=== PATIENT | male | born 1960 | race Caucasian/White ===

== ENCOUNTER 2018-12-06 11:49 | Emergency (ER) | payer MEDICAID ==
[~2018-12-06] VITALS: Ht 172.7 cm; Wt 94.0 kg
[~2018-12-06 11:49] MED LIST: AMLO10TA PO; ASPI-611 PO; ATOR80TA PO; CLON0.1T PO; HCTZ25T PO; HYDR-4069 PO; LOSA100T57 PO; METO100T14 PO; MINO10TA16 PO; OMEP-84 PO
--- NOTE | 2018-12-06 12:07 | NUR ---
PT JUST AFTER EKG GOT DIAPHORETIC, PALE, AND NAUSEATED. STATES THIS IS NOT HIS NORM BUT THIS HAS BEEN HAPPENING SINCE THIS AM. 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 Addendum: 12/06/18 at 1209 by RWILCOX PT GIVEN COOL CLOTHE AND REPOSITIONED. PT ALERT AND ORIENTED.
[2018-12-06] MEDS ORDERED: normal saline 1000ML IV soln IVB ONE (12:25)
[2018-12-06] MEDS ORDERED: ondansetron/PF 4mg/2ml inj IV ONE (12:25)
[2018-12-06] MEDS ORDERED: LORA10TA65 PO (12:38)
[2018-12-06] MEDS ORDERED: LOSA50TA3 PO (12:38)
[2018-12-06 12:56] LABS: BASOPHILS # (AUTO) 0.1 X10'3 (0-0.2); BASOPHILS % (AUTO) 0.8 % (0-1); EOSINOPHILS # (AUTO) 0.1 X10'3 (0-0.9); EOSINOPHILS % (AUTO) 0.3 % (0-6); HEMATOCRIT 40.5 % (42.0-52.0); HEMOGLOBIN 12.9 g/dl (14.0-17.9); LYMPHOCYTES # (AUTO) 1.8 X10'3 (1.1-4.8); LYMPHOCYTES % (AUTO) 11.2 % (21-51); MEAN CORPUSCULAR HEMOGLOBIN 23.8 PG (27.0-31.0); MEAN CORPUSCULAR HGB CONC 31.9 g/dL (33.0-36.5); MEAN CORPUSCULAR VOLUME 74.4 FL (78-98); MEAN PLATELET VOLUME 8.7 FL (7.4-10.4); MONOCYTES # (AUTO) 1.5 X10'3 (0-0.9); MONOCYTES % (AUTO) 9.3 % (2-12); NEUTROPHILS # (AUTO) 12.7 X10'3 (1.8-7.7); NEUTROPHILS % (AUTO) 78.4 % (42-75); PLATELET COUNT 262 X10'3 (140-440); RED BLOOD COUNT 5.44 X10'6 (4.70-6.10); RED CELL DISTRIBUTION WIDTH 16.8 % (11.5-14.5); WHITE BLOOD COUNT 16.2 X10'3 (4.5-11.0)
[2018-12-06 13:19] LABS: ALANINE AMINOTRANSFERASE 16 U/L (12-78); ALBUMIN 2.6 G/DL (3.4-5.0); ALBUMIN/GLOBULIN RATIO 0.7 (1.1-1.5); ALKALINE PHOSPHATASE 84 IU/L (46-116); ANION GAP 11 (8-16); ASPARTATE AMINO TRANSFERASE 18 U/L (10-37); BILIRUBIN,TOTAL 0.6 MG/DL (0.1-1.0); BLOOD UREA NITROGEN 29 MG/DL (7-18); CALCIUM 8.1 MG/DL (8.5-10.1); CHLORIDE 100 MMOL/L (99-107); CHOL/HDL RATIO 4.7 (0.00-4.99); CHOLESTEROL 99 MG/DL (0-200); CREATININE 1.38 MG/DL (0.60-1.10); GLUCOSE 135 MG/DL (70-104); HDL CHOLESTEROL 21 MG/DL (35-60); LDL CHOLESTEROL 52 MG/DL (50-100); SODIUM 137 MMOL/L (135-145); TOTAL CARBON DIOXIDE 25.9 MMOL/L (24-32); TOTAL PROTEIN 6.3 G/DL (6.4-8.2); TRIGLYCERIDES 216 MG/DL (20-135); eGFR 53 ML/MIN
[2018-12-06 13:35] LABS: POTASSIUM 2.7 MMOL/L (3.5-5.1)
[2018-12-06] MEDS ORDERED: potassium Cl 20 mEq SR tablet PO ONE (14:25)
[2018-12-06] MEDS: potassium 10mEq/100ml NS w/LIDOcaine (10mg/bag) IV SCH ×2 (14:50→15:25)
[2018-12-06] MEDS: magnesium 2GM in 50ml NS 50 ML IV SCH ×2 (15:14→16:43)
[2018-12-06 17:52] VITALS: BP 161/105
== END 2018-12-06 17:53 | disposition home or self-care (01) ==
LOC: ER 11:50
DX: R42 Dizziness and giddiness (principal); E87.6 Hypokalemia; R53.83 Other fatigue; I12.9 Hypertensive chronic kidney disease with stage 1 through stage 4 chronic kidney disease, or unspecified chronic kidney disease; N18.9 Chronic kidney disease, unspecified; I25.10 Atherosclerotic heart disease of native coronary artery without angina pectoris; Z98.890 Other specified postprocedural states; Z95.5 Presence of coronary angioplasty implant and graft; Z79.82 Long term (current) use of aspirin; Z79.899 Other long term (current) drug therapy
CPT/HCPCS: 36415; 80053; 80061; 84439; 84443; 84484; 85025; 93005; 96365; 96366; 96368; 96375; 99284; J2405; J3475; J3480; J7030; 96361

== ENCOUNTER 2019-09-22 14:22 | Inpatient (IN) | payer MEDICAID ==
[~2019-09-22] VITALS: Ht 175.3 cm; Wt 93.2 kg
[2019-09-22] MEDS: K and/or MAG REPLACEMENT MC SCH
[~2019-09-22 14:22] MED LIST changes: +LORA10TA65 PO; -LOSA100T57 PO; +LOSA50TA3 PO; -METO100T14 PO; -MINO10TA16 PO
[2019-09-22] MEDS ORDERED: diltiazem 5mg/ml 5ml inj. IV ONE ×2 (15:05→15:55)
[2019-09-22 15:16] LABS: BASOPHILS # (AUTO) 0.2 X10'3 (0-0.2); BASOPHILS % (AUTO) 1.1 % (0-1); EOSINOPHILS % (AUTO) 0.1 % (0-6); HEMATOCRIT 37.9 % (42.0-52.0); HEMOGLOBIN 11.6 g/dl (14.0-17.9); LYMPHOCYTES # (AUTO) 1.9 X10'3 (1.1-4.8); LYMPHOCYTES % (AUTO) 11.7 % (21-51); MEAN CORPUSCULAR HEMOGLOBIN 19.3 PG (27.0-31.0); MEAN CORPUSCULAR HGB CONC 30.7 g/dL (33.0-36.5); MEAN CORPUSCULAR VOLUME 62.9 FL (78-98); MEAN PLATELET VOLUME 8.5 FL (7.4-10.4); MONOCYTES # (AUTO) 2.3 X10'3 (0-0.9); MONOCYTES % (AUTO) 14.7 % (2-12); NEUTROPHILS # (AUTO) 11.5 X10'3 (1.8-7.7); NEUTROPHILS % (AUTO) 72.4 % (42-75); PLATELET COUNT 421 X10'3 (140-440); RED BLOOD COUNT 6.02 X10'6 (4.70-6.10); RED CELL DISTRIBUTION WIDTH 19.8 % (11.5-14.5); WHITE BLOOD COUNT 15.8 X10'3 (4.5-11.0)
[2019-09-22 15:32] LABS: ALANINE AMINOTRANSFERASE 17 U/L (12-78); ALBUMIN 3.4 G/DL (3.4-5.0); ALBUMIN/GLOBULIN RATIO 0.6 (1.1-1.5); ALKALINE PHOSPHATASE 96 IU/L (46-116); ANION GAP 9 (8-16); ASPARTATE AMINO TRANSFERASE 16 U/L (10-37); BILIRUBIN,TOTAL 1.3 MG/DL (0.1-1.0); BLOOD UREA NITROGEN 21 MG/DL (7-18); BUN/CREATININE RATIO 11.4 (5.4-32.0); CALCIUM 9.1 MG/DL (8.5-10.1); CHLORIDE 98 MMOL/L (99-107); CREATININE 1.85 MG/DL (0.60-1.10); GLUCOSE 149 MG/DL (70-104); POTASSIUM 3.2 MMOL/L (3.5-5.1); SODIUM 134 MMOL/L (135-145); TOTAL CARBON DIOXIDE 26.7 MMOL/L (24-32); TOTAL PROTEIN 9.1 G/DL (6.4-8.2); eGFR 38 ML/MIN
[2019-09-22 15:39] LABS: ANISOCYTOSIS 2+; HYPOCHROMASIA 2+; MICROCYTOSIS 2+; PLATELET ESTIMATE NORMAL; TOTAL CELLS COUNTED 100
[2019-09-22 15:40] LABS: ELLIPTOCYTES 1+; POLYCHROMASIA 1+
[2019-09-22] MEDS ORDERED: potassium Cl 20 mEq SR tablet PO STA (15:55)
[2019-09-22 16:10] LABS: D-DIMER 0.92 MG/L FEU (0-0.50)
[2019-09-22] MEDS ORDERED: heparin 25,000 UNIT/250ml bag 250 ML IV SCH (16:17)
[2019-09-22] MEDS ORDERED: heparin 10,000 units/1 ML INJ IV ONE ×2 (16:20)
[2019-09-22] MEDS ORDERED: heparin 10,000 units/1 ML INJ IV PRN (16:20)
[2019-09-22] MEDS ORDERED: CefTRIAXone 2gm/D5W 50ml 50 ML IV ONE (16:25)
[2019-09-22] MEDS ORDERED: azithromycin 250mg tablet PO ONE (16:25)
[2019-09-22] MEDS ORDERED: ondansetron/PF 4mg/2ml inj IV PRN (16:35)
[2019-09-22] MEDS ORDERED: bisacodyl 10mg suppository rectal RC PRN (16:35)
[2019-09-22] MEDS ORDERED: acetaminophen 325mg tablet PO PRN ×2 (16:35)
[2019-09-22] MEDS ORDERED: acetaminophen 650mg rectal suppository RC PRN (16:35)
[2019-09-22] MEDS ORDERED: morphine 2 MG/ML inj. syringe IV PRN ×2 (16:35)
[2019-09-22] MEDS ORDERED: potassium Cl 20 mEq SR tablet PO PRN (16:35)
[2019-09-22] MEDS ORDERED: magnesium Cl slow-release 64mg tablet PO PRN (16:35)
[2019-09-22] MEDS ORDERED: magnesium 4gm in 100ml NS 100 ML IV PRN (16:35)
[2019-09-22] MEDS ORDERED: diltiazem-D5W 125mg/125ml 125 ML IV SCH (16:35)
[2019-09-22] MEDS ORDERED: diphenhydrAMINE 25mg capsule PO PRN (16:35)
[2019-09-22] MEDS ORDERED: potassium CL 10mEq/100ml bag 100 ML IV PRN ×2 (16:35)
[2019-09-22] MEDS ORDERED: HYDROcodone/acetaminophen 5mg/325mg tablet PO PRN (16:35)
[2019-09-22] MEDS ORDERED: mag hydrox/Alum hydrox/simeth 30ml oral suspension PO PRN (16:35)
[2019-09-22] MEDS ORDERED: magnesium hydroxide 30ml (MOM) UD suspension PO PRN (16:35)
[2019-09-22] MEDS ORDERED: HYDROcodone/acetaminophen 10/325mg tab PO PRN (16:35)
[2019-09-22] MEDS ORDERED: magnesium 2GM in 50ml NS 50 ML IV PRN (16:35)
[2019-09-22 16:38] LABS: PARTIAL THROMBOPLASTIN TIME 32 SECONDS (22-32)
[2019-09-22] MEDS: diltiazem-NS 100mg/100ml 100 ML IV SCH (17:21)
[2019-09-22] MEDS: heparin 25,000 UNIT/250ml bag 250 ML IV SCH (18:00)
[2019-09-22] MEDS ORDERED: EZET10TA48 PO (19:04)
[2019-09-22 19:07] LABS: CLARITY,URINE CLEAR (Clear); COLOR,URINE AMBER (Yellow); GLUCOSE, URINE 100 mg/dl (Neg); KETONES,URINE NEGATIVE (Neg); LEUKOCYTE ESTERASE ,URINE NEGATIVE (Neg); NITRITES, URINE NEGATIVE (Neg); OCCULT BLOOD,URINE NEGATIVE (Neg); PH,URINE 5.5 (4.8-8.0); PROTEIN,URINE 100 mg/dl (Neg)
[2019-09-22 19:10] LABS: UA COLLECTION TYPE URINAL
[2019-09-22 19:19] LABS: BACTERIA,URINE NONE SEEN /HPF (Neg); HYALINE CASTS 0-3 /LPF (NEGATIVE); MUCUS STRANDS NONE SEEN /LPF (Neg); RBC,URINE 0-2 /HPF (0-2); SQUAMOUS EPITHELIAL CELL,UR FEW /LPF (FEW); WBC,URINE 0-4 /HPF (0-4)
[2019-09-22] MEDS ORDERED: apixaban 5mg tablet PO SCH (20:00)
[2019-09-22] MEDS ORDERED: temazepam 15mg capsule PO PRN (21:00)
[2019-09-22 23:00] VITALS: BP 184/119
[2019-09-22] MEDS ORDERED: methylPREDNISolone sod succ 125mg/2ml vial IV ONE (23:05)
[2019-09-22] MEDS ORDERED: furosemide 40mg/4ml inj IV ONE (23:05)
[2019-09-22] MEDS ORDERED: ipratropium/albuterol 3ml nebule NEB PRN (23:05)
[2019-09-23] VITALS (13 sets, daily range): BP systolic 112–183; BP diastolic 68–121
[2019-09-23] MEDS: normal saline 1000ml 1,000 ML IV SCH ×4 (00:07→18:08)
[2019-09-23 01:14] LABS: ALANINE AMINOTRANSFERASE 15 U/L (12-78); ALBUMIN 3.2 G/DL (3.4-5.0); ALBUMIN/GLOBULIN RATIO 0.6 (1.1-1.5); ALKALINE PHOSPHATASE 91 IU/L (46-116); ANION GAP 9 (8-16); ASPARTATE AMINO TRANSFERASE 13 U/L (10-37); BLOOD UREA NITROGEN 23 MG/DL (7-18); BUN/CREATININE RATIO 13.1 (5.4-32.0); CALCIUM 8.6 MG/DL (8.5-10.1); CHLORIDE 99 MMOL/L (99-107); CHOL/HDL RATIO 2.3 (0.00-4.99); CHOLESTEROL 81 MG/DL (0-200); CREATININE 1.76 MG/DL (0.60-1.10); GLUCOSE 134 MG/DL (70-104); HDL CHOLESTEROL 36 MG/DL (35-60); LDL CHOLESTEROL 34 MG/DL (50-100); PHOSPHORUS 3.7 MG/DL (2.3-4.5); POTASSIUM 3.4 MMOL/L (3.5-5.1); SODIUM 136 MMOL/L (135-145); TOTAL CARBON DIOXIDE 27.8 MMOL/L (24-32); TOTAL PROTEIN 8.8 G/DL (6.4-8.2); TRIGLYCERIDES 74 MG/DL (20-135); eGFR 40 ML/MIN
[2019-09-23 01:25] LABS: BASOPHILS # (AUTO) 0.2 X10'3 (0-0.2); EOSINOPHILS % (AUTO) 0.1 % (0-6); HEMATOCRIT 35.6 % (42.0-52.0); HEMOGLOBIN 11.2 g/dl (14.0-17.9); LYMPHOCYTES # (AUTO) 2.7 X10'3 (1.1-4.8); MEAN CORPUSCULAR HEMOGLOBIN 19.5 PG (27.0-31.0); MEAN CORPUSCULAR HGB CONC 31.4 g/dL (33.0-36.5); MONOCYTES # (AUTO) 2.3 X10'3 (0-0.9); MONOCYTES % (AUTO) 14.4 % (2-12); NEUTROPHILS # (AUTO) 10.9 X10'3 (1.8-7.7); NEUTROPHILS % (AUTO) 67.5 % (42-75); PLATELET COUNT 394 X10'3 (140-440); RED BLOOD COUNT 5.75 X10'6 (4.70-6.10); RED CELL DISTRIBUTION WIDTH 19.9 % (11.5-14.5); WHITE BLOOD COUNT 16.1 X10'3 (4.5-11.0)
[2019-09-23] MEDS: methylPREDNISolone sod succ/PF 40mg inj. IV SCH ×4 (02:00→21:02)
[2019-09-23] MEDS: ipratropium/albuterol 3ml nebule NEB SCH ×4 (02:43→20:49)
[2019-09-23 05:48] LABS: PLATELET ESTIMATE NORMAL
[2019-09-23 05:49] LABS: ANISOCYTOSIS 2+; LARGE PLATELETS FEW; MICROCYTOSIS 2+
--- NOTE | 2019-09-23 07:12 | NUR ---
Patient in room PCU 3016. I have received report from Christel WALSH and had the opportunity to ask questions and assume patient care.
[2019-09-23] MEDS: K and/or MAG REPLACEMENT MC SCH ×2 (08:00→19:38)
[2019-09-23] MEDS: cloNIDine 0.1 mg tablet PO SCH ×3 (09:01→21:02)
[2019-09-23] MEDS: aspirin 81mg tablet.DR PO SCH (09:01)
[2019-09-23] MEDS: ezetimibe 10mg tablet PO SCH (09:01)
[2019-09-23] MEDS: HYDROchlorothiazide 25mg tablet PO SCH (09:01)
[2019-09-23] MEDS: losartan 25mg tablet PO SCH (09:01)
[2019-09-23] MEDS: pantoprazole 40mg Tablet.DR PO SCH (09:01)
[2019-09-23] MEDS: azithromycin/NS 500mg/250ml 250 ML IV SCH (09:01)
[2019-09-23] MEDS: loratadine 10mg tablet PO SCH (09:02)
[2019-09-23] MEDS: furosemide 40mg/4ml inj IV SCH ×2 (09:02→21:02)
[2019-09-23] MEDS: diltiazem-NS 100mg/100ml 100 ML IV SCH ×2 (09:05→18:04)
[2019-09-23] MEDS: heparin 25,000 UNIT/250ml bag 250 ML IV SCH (09:17)
[2019-09-23] MEDS ORDERED: FLU VACC QS2019-20 36MOS UP/PF 60 MCG/0.5 ML SYRINGE IMVAC ONE (10:00)
[2019-09-23] MEDS: potassium Cl 20 mEq SR tablet PO PRN ×2 (13:47→17:59)
[2019-09-23] MEDS: CefTRIAXone/D5W-Rocephin 1gm 50 ML IV SCH (18:02)
--- NOTE | 2019-09-23 18:30 | NUR ---
Problems reprioritized. Patient report given, questions answered & plan of care reviewed with Marco RN.
--- NOTE | 2019-09-23 19:39 | NUR ---
Patient in room PCU 3016. I have received report from Sarah WALSH and had the opportunity to ask questions and assume patient care.
[2019-09-23] MEDS ORDERED: atorvastatin 20mg tablet PO SCH (21:00)
--- NOTE | 2019-09-23 22:55 | NUR ---
Patient was brought up from ER and when i was going through her home med, there were a few things that needed to be updated on the home med list. I am not able to edit the list so ill provide the medications that need to be changed below. Thank you! Vitamin D3 BID Ferrous sulfate- BID Synthroid- patient takes at Midnight.
[2019-09-23] MEDS: diltiazem CD 120mg capsule (once-daily) PO SCH (23:04)
[2019-09-23] MEDS: apixaban 5mg tablet PO SCH (23:05)
[2019-09-23] MEDS: metoprolol succinate 25mg (24-HOUR) SR. Tablet PO SCH (23:05)
[2019-09-24] VITALS: BP 150/68
[2019-09-24 02:00] VITALS: BP 132/66
[2019-09-24] MEDS: methylPREDNISolone sod succ/PF 40mg inj. IV SCH ×2 (02:36→08:13)
[2019-09-24] MEDS: potassium Cl 20 mEq SR tablet PO PRN ×2 (02:36→08:14)
[2019-09-24] MEDS: ipratropium/albuterol 3ml nebule NEB SCH ×2 (03:15→08:45)
[2019-09-24] MEDS: diltiazem-NS 100mg/100ml 100 ML IV SCH (04:01)
[2019-09-24] MEDS: normal saline 1000ml 1,000 ML IV SCH (04:02)
[2019-09-24 05:17] LABS: BASOPHILS # (AUTO) 0.1 X10'3 (0-0.2); BASOPHILS % (AUTO) 0.3 % (0-1); EOSINOPHILS % (AUTO) 0 % (0-6); HEMATOCRIT 32.1 % (42.0-52.0); LYMPHOCYTES # (AUTO) 0.9 X10'3 (1.1-4.8); LYMPHOCYTES % (AUTO) 5.2 % (21-51); MEAN CORPUSCULAR HEMOGLOBIN 19.3 PG (27.0-31.0); MEAN CORPUSCULAR HGB CONC 31.2 g/dL (33.0-36.5); MEAN CORPUSCULAR VOLUME 62.1 FL (78-98); MEAN PLATELET VOLUME 8.7 FL (7.4-10.4); MONOCYTES # (AUTO) 1.1 X10'3 (0-0.9); MONOCYTES % (AUTO) 6.2 % (2-12); NEUTROPHILS # (AUTO) 15.2 X10'3 (1.8-7.7); NEUTROPHILS % (AUTO) 88.3 % (42-75); PLATELET COUNT 367 X10'3 (140-440); RED BLOOD COUNT 5.17 X10'6 (4.70-6.10); RED CELL DISTRIBUTION WIDTH 19.3 % (11.5-14.5); WHITE BLOOD COUNT 17.2 X10'3 (4.5-11.0)
[2019-09-24 05:34] LABS: ALANINE AMINOTRANSFERASE 14 U/L (12-78); ALBUMIN 2.6 G/DL (3.4-5.0); ALBUMIN/GLOBULIN RATIO 0.5 (1.1-1.5); ALKALINE PHOSPHATASE 78 IU/L (46-116); ANION GAP 10 (8-16); ASPARTATE AMINO TRANSFERASE 16 U/L (10-37); BILIRUBIN,TOTAL 0.4 MG/DL (0.1-1.0); BLOOD UREA NITROGEN 29 MG/DL (7-18); BUN/CREATININE RATIO 17.7 (5.4-32.0); CALCIUM 8.6 MG/DL (8.5-10.1); CHLORIDE 102 MMOL/L (99-107); CREATININE 1.64 MG/DL (0.60-1.10); GLUCOSE 287 MG/DL (70-104); MAGNESIUM 1.9 MG/DL (1.5-2.4); PHOSPHORUS 3.1 MG/DL (2.3-4.5); POTASSIUM 3.2 MMOL/L (3.5-5.1); SODIUM 137 MMOL/L (135-145); TOTAL CARBON DIOXIDE 24.6 MMOL/L (24-32); TOTAL PROTEIN 7.8 G/DL (6.4-8.2); eGFR 43 ML/MIN
--- NOTE | 2019-09-24 06:18 | NUR ---
Patient in room PCU 3016. I have received report from Marco WALSH and had the opportunity to ask questions and assume patient care.
--- NOTE | 2019-09-24 06:20 | NUR ---
Patient in room PCU 3016. I have received report from Mary Akins and had the opportunity to ask questions and assume patient care.
--- NOTE | 2019-09-24 06:21 | NUR ---
Problems reprioritized. Patient report given, questions answered & plan of care reviewed with Sarah WALSH.
[2019-09-24 07:00] VITALS: BP 135/70
[2019-09-24] MEDS: diltiazem CD 120mg capsule (once-daily) PO SCH (08:14)
[2019-09-24] MEDS: losartan 25mg tablet PO SCH (08:14)
[2019-09-24] MEDS: HYDROchlorothiazide 25mg tablet PO SCH (08:14)
[2019-09-24] MEDS: loratadine 10mg tablet PO SCH (08:14)
[2019-09-24] MEDS: furosemide 40mg/4ml inj IV SCH (08:14)
[2019-09-24] MEDS: ezetimibe 10mg tablet PO SCH (08:14)
[2019-09-24] MEDS: aspirin 81mg tablet.DR PO SCH (08:14)
[2019-09-24] MEDS: pantoprazole 40mg Tablet.DR PO SCH (08:15)
[2019-09-24] MEDS: apixaban 5mg tablet PO SCH (08:15)
[2019-09-24] MEDS: metoprolol succinate 25mg (24-HOUR) SR. Tablet PO SCH (08:15)
[2019-09-24] MEDS: CefTRIAXone/D5W-Rocephin 1gm 50 ML IV SCH (08:15)
[2019-09-24] MEDS: cloNIDine 0.1 mg tablet PO SCH (08:15)
[2019-09-24] MEDS: azithromycin/NS 500mg/250ml 250 ML IV SCH (08:15)
[2019-09-24] MEDS: K and/or MAG REPLACEMENT MC SCH (08:19)
[2019-09-24 09:00] VITALS: BP 127/96
[2019-09-24 09:17] LABS: ANISOCYTOSIS 2+; LARGE PLATELETS FEW; PLATELET ESTIMATE NORMAL
[2019-09-24 09:18] LABS: HYPOCHROMASIA 1+; MICROCYTOSIS 2+; POLYCHROMASIA FEW
[2019-09-24 11:00] VITALS: BP 152/78
[2019-09-24] MEDS ORDERED: FURO-150 PO (11:23)
[2019-09-24] MEDS ORDERED: CARCD120C PO (11:23)
[2019-09-24] MEDS ORDERED: AZIT500T9 PO (11:23)
[2019-09-24] MEDS ORDERED: ALBU8.5H8 INH (11:23)
[2019-09-24] MEDS ORDERED: PRED10TA23 PO (11:23)
[2019-09-24] MEDS ORDERED: FLUT1DIS4 INH (11:23)
[2019-09-24] MEDS ORDERED: CEFD300C3 PO (11:23)
[2019-09-24] MEDS ORDERED: APIX5TAB3 PO (11:23)
[2019-09-24] MEDS ORDERED: METO-395 PO (11:23)
--- NOTE | 2019-09-24 12:45 | NUR ---
Attempted to schedule follow up appointment for patient with Dr. Nixon, patient declined stating "I have other appointments I need to coordinate with." Provided patient with Dr. Nixon's office phone number and re-educated him to schedule follow up within 2 weeks with dealership general manager and PCP. Patient verbalizes understanding.
--- NOTE | 2019-09-24 12:55 | NUR ---
Patient stable for discharge per MD order. All discharge information and education reviewed with patient before signing necessary paperwork. IV's discontinued with catheters in tact, bedside monitor removed, all belongings packed up and sent with patient, home prescriptions retrieved from pharmacy and returned to patient. Addendum: 09/24/19 at 1356 by Sarah Mckenzie RN Patient wheeled down to lobby and picked up by friend in private vehicle.
== END 2019-09-24 12:55 | disposition home or self-care (01) | DRG 137 ==
LOC: ER 14:22 → ED HOLD 16:31 → PCU 3S 19:50
PROVIDERS: ADMIT Family Medicine; ATTEND Family Medicine
PROC: 3E02340 Introduction of Influenza Vaccine into Muscle, Percutaneous Approach (ICD-10-PCS; principal; 2019-09-23)
PROC: CB121ZZ Planar Nuclear Medicine Imaging of Lungs and Bronchi using Technetium 99m (Tc-99m) (ICD-10-PCS; 2019-09-23)
DX: J69.0 Pneumonitis due to inhalation of food and vomit (principal); J96.20 Acute and chronic respiratory failure, unspecified whether with hypoxia or hypercapnia; I24.9 Acute ischemic heart disease, unspecified; I13.0 Hypertensive heart and chronic kidney disease with heart failure and stage 1 through stage 4 chronic kidney disease, or unspecified chronic kidney disease; E78.5 Hyperlipidemia, unspecified; E87.1 Hypo-osmolality and hyponatremia; Z60.2 Problems related to living alone; E87.6 Hypokalemia; F17.200 Nicotine dependence, unspecified, uncomplicated; I50.30 Unspecified diastolic (congestive) heart failure; I16.1 Hypertensive emergency; I25.10 Atherosclerotic heart disease of native coronary artery without angina pectoris; I48.91 Unspecified atrial fibrillation; J44.1 Chronic obstructive pulmonary disease with (acute) exacerbation; K21.9 Gastro-esophageal reflux disease without esophagitis; N18.3 Chronic kidney disease, stage 3 (moderate); Z79.82 Long term (current) use of aspirin; Z79.899 Other long term (current) drug therapy; Z86.73 Personal history of transient ischemic attack (TIA), and cerebral infarction without residual deficits; Z95.5 Presence of coronary angioplasty implant and graft; Z23 Encounter for immunization; I25.2 Old myocardial infarction; Z71.6 Tobacco abuse counseling
CPT/HCPCS: 36415; 71045; 78582; 80053; 80061; 81001; 83036; 83605; 83735; 83880; 84100; 84145; 84439; 84443; 84484; 85025; 85379; 85610; 85730; 87040; 87081; 93005; 93306; 94640; 94760; 96374; 99285; A9539; A9540; G0378; J0456; J0696; J1644; J1940; J2920; J2930; J3490; J7030; Q2037

== ENCOUNTER 2019-11-18 06:13 | Inpatient (IN) | payer MEDICAID ==
[2019-11-18] VITALS (7 sets, daily range): BP systolic 166–193; BP diastolic 84–124
[~2019-11-18] VITALS: Ht 175.3 cm; Wt 89.6 kg
[~2019-11-18 06:13] MED LIST changes: +ALBU8.5H8 INH; -AMLO10TA PO; +APIX5TAB3 PO; +AZIT500T9 PO; +CARCD120C PO; +EZET10TA48 PO; +FLUT1DIS4 INH; -HCTZ25T PO; -HYDR-4069 PO; +METO-395 PO
[2019-11-18] MEDS ORDERED: diltiazem 5mg/ml 5ml inj. IV ONE ×2 (06:20→07:10)
[2019-11-18] MEDS ORDERED: CLON-473 PO (06:28)
[2019-11-18] MEDS ORDERED: nitroGLYCERIN 0.4mg/hour patch TD ONE (06:30)
[2019-11-18] MEDS ORDERED: magnesium 2GM in 50ml NS 50 ML IV ONE (06:30)
[2019-11-18 06:59] LABS: BASOPHILS # (AUTO) 0.1 X10'3 (0-0.2); BASOPHILS % (AUTO) 0.9 % (0-1); EOSINOPHILS # (AUTO) 0.1 X10'3 (0-0.9); HEMATOCRIT 31.3 % (42.0-52.0); LYMPHOCYTES # (AUTO) 1.7 X10'3 (1.1-4.8); MEAN CORPUSCULAR HEMOGLOBIN 18.2 PG (27.0-31.0); MEAN CORPUSCULAR HGB CONC 28.8 g/dL (33.0-36.5); MEAN CORPUSCULAR VOLUME 63.3 FL (78-98); MEAN PLATELET VOLUME 9.4 FL (7.4-10.4); MONOCYTES # (AUTO) 0.7 X10'3 (0-0.9); MONOCYTES % (AUTO) 5.1 % (2-12); NEUTROPHILS # (AUTO) 11.7 X10'3 (1.8-7.7); PLATELET COUNT 410 X10'3 (140-440); RED BLOOD COUNT 4.94 X10'6 (4.70-6.10); RED CELL DISTRIBUTION WIDTH 20.4 % (11.5-14.5); WHITE BLOOD COUNT 14.4 X10'3 (4.5-11.0)
[2019-11-18] MEDS ORDERED: diltiazem 30mg tablet PO ONE ×2 (07:10→08:15)
[2019-11-18 07:20] LABS: ALANINE AMINOTRANSFERASE 15 U/L (12-78); ALBUMIN 3.1 G/DL (3.4-5.0); ALBUMIN/GLOBULIN RATIO 0.6 (1.1-1.5); ALKALINE PHOSPHATASE 92 IU/L (46-116); ANION GAP 12 (8-16); ASPARTATE AMINO TRANSFERASE 14 U/L (10-37); BILIRUBIN,TOTAL 0.9 MG/DL (0.1-1.0); BLOOD UREA NITROGEN 16 MG/DL (7-18); BUN/CREATININE RATIO 11.1 (5.4-32.0); CALCIUM 8.8 MG/DL (8.5-10.1); CHLORIDE 103 MMOL/L (99-107); CREATININE 1.44 MG/DL (0.60-1.10); GLUCOSE 189 MG/DL (70-104); POTASSIUM 3.8 MMOL/L (3.5-5.1); SODIUM 138 MMOL/L (135-145); TOTAL CARBON DIOXIDE 22.9 MMOL/L (24-32); TOTAL PROTEIN 8.4 G/DL (6.4-8.2); eGFR 50 ML/MIN
[2019-11-18 07:27] LABS: MAGNESIUM 1.8 MG/DL (1.5-2.4)
[2019-11-18] MEDS ORDERED: enoxaparin 100mg/ml syringe SUBCUT ONE (07:35)
[2019-11-18] MEDS ORDERED: hydrALAZINE 20mg/ml inj. IV ONE (07:35)
[2019-11-18] MEDS ORDERED: LORazepam 2 mg/ml vial IV ONE ×2 (07:50→10:20)
[2019-11-18] MEDS ORDERED: furosemide 10 MG/1 ML 10ml inj IV ONE (07:50)
[2019-11-18] MEDS ORDERED: furosemide 20 MG/2 ML vial IV ONE (07:50)
[2019-11-18 08:26] LABS: ANISOCYTOSIS 3+; MICROCYTOSIS 2+; PLATELET ESTIMATE NORMAL
[2019-11-18 08:27] LABS: ELLIPTOCYTES FEW
[2019-11-18 08:28] LABS: HYPOCHROMASIA 1+
--- NOTE | 2019-11-18 09:42 | NUR ---
Dr Reyez made aware Patient's BP 237/90, no new orders at this time. Patient awake, alert, no signs of distress noted.
[2019-11-18 09:54] LABS: URINE AMPHETAMINE SCREEN NEGATIVE (Neg); URINE BARBITUATE SCREEN NEGATIVE (Neg); URINE BENZODIAZEPINES SCREEN NEGATIVE (Neg); URINE CANNABINOID SCREEN NEGATIVE (Neg); URINE COCAINE SCREEN NEGATIVE (Neg); URINE METHADONE SCREEN NEGATIVE (Neg); URINE OPIATE SCREEN NEGATIVE (Neg); URINE PHENCYCLIDINE SCREEN NEGATIVE (Neg)
[2019-11-18] MEDS ORDERED: hydrALAZINE 25 MG tablet PO STA (09:59)
[2019-11-18] MEDS ORDERED: labetalol 20mg/4ml (5mg/ml) syringe IV ONE ×2 (10:00→11:35)
[2019-11-18] MEDS ORDERED: LIDOcaine 2% 10ml TOPICAL JELLY (Urojet) TP ONE (10:20)
[2019-11-18] MEDS ORDERED: nitroGLYCERIN 0.4mg SUBLingual tab SL PRN ×2 (13:20→13:40)
--- NOTE | 2019-11-18 13:20 | NUR ---
Patient continues to complain of chest pressure. Spoke to Dr. Reyez who orders SL nitro and re-evaluate his CP.
--- NOTE | 2019-11-18 13:32 | NUR ---
After pulling SL nitro for patient, he states, "Oh, I had chest pain before. Not right now." Patient educated on purpose of nitroglycerine and he states he will call if his chest pain returns. Nitro held for now.
[2019-11-18] MEDS ORDERED: magnesium 2GM in 50ml NS 50 ML IV PRN (13:40)
[2019-11-18] MEDS ORDERED: mag hydrox/Alum hydrox/simeth 30ml oral suspension PO PRN (13:40)
[2019-11-18] MEDS ORDERED: magnesium Cl slow-release 64mg tablet PO PRN (13:40)
[2019-11-18] MEDS ORDERED: ondansetron/PF 4mg/2ml inj IV PRN ×2 (13:40→16:40)
[2019-11-18] MEDS ORDERED: magnesium hydroxide 30ml (MOM) UD suspension PO PRN (13:40)
[2019-11-18] MEDS ORDERED: potassium Cl 20 mEq SR tablet PO PRN (13:40)
[2019-11-18] MEDS ORDERED: morphine 2 MG/ML inj. syringe IV PRN ×2 (13:40)
[2019-11-18] MEDS ORDERED: potassium CL 10mEq/100ml bag 100 ML IV PRN ×2 (13:40)
[2019-11-18] MEDS ORDERED: acetaminophen 325mg tablet PO PRN (13:40)
[2019-11-18] MEDS ORDERED: magnesium 4gm in 100ml NS 100 ML IV PRN (13:40)
--- NOTE | 2019-11-18 14:24 | NUR ---
Clarified orders w/ Dr Martel regarding heparin order, but no bolus for cardiac symptoms as Lovenox administered in ed ~ 7 hrs ago. New orders received for Heparin bolus per protocol (4000 units).
[2019-11-18 14:25] LABS: BASOPHILS # (AUTO) 0.1 X10'3 (0-0.2); BASOPHILS % (AUTO) 0.8 % (0-1); EOSINOPHILS % (AUTO) 0.1 % (0-6); HEMATOCRIT 32.3 % (42.0-52.0); HEMOGLOBIN 9.5 g/dl (14.0-17.9); LYMPHOCYTES # (AUTO) 1.7 X10'3 (1.1-4.8); MEAN CORPUSCULAR HEMOGLOBIN 18.2 PG (27.0-31.0); MEAN CORPUSCULAR HGB CONC 29.4 g/dL (33.0-36.5); MEAN CORPUSCULAR VOLUME 61.9 FL (78-98); MEAN PLATELET VOLUME 8.6 FL (7.4-10.4); MONOCYTES # (AUTO) 0.7 X10'3 (0-0.9); MONOCYTES % (AUTO) 5.4 % (2-12); NEUTROPHILS # (AUTO) 10.6 X10'3 (1.8-7.7); NEUTROPHILS % (AUTO) 80.7 % (42-75); PLATELET COUNT 397 X10'3 (140-440); RED BLOOD COUNT 5.21 X10'6 (4.70-6.10); RED CELL DISTRIBUTION WIDTH 20.4 % (11.5-14.5); WHITE BLOOD COUNT 13.2 X10'3 (4.5-11.0)
[2019-11-18] MEDS ORDERED: heparin 10,000 units/1 ML INJ IV ONE (14:30)
[2019-11-18] MEDS: heparin 25,000 UNIT/250ml bag 250 ML IV SCH (14:32)
[2019-11-18] MEDS: heparin 10,000 units/1 ML INJ IV PRN (14:36)
[2019-11-18 14:38] LABS: PARTIAL THROMBOPLASTIN TIME 34 SECONDS (22-32)
[2019-11-18] MEDS ORDERED: iohexol 350MG/ML 100ml bottle IV ONE (14:42)
[2019-11-18] MEDS ORDERED: LIDOcaine 1% (10mg/ml)w/preservative injection 20ml MDV ONE (14:42)
[2019-11-18] MEDS ORDERED: midazolam 2 mg/2 ml injection ONE (14:43)
[2019-11-18] MEDS ORDERED: fentaNYL/PF 50MCG/1 ML 2ML syringe ONE (14:43)
--- NOTE | 2019-11-18 14:46 | NUR ---
Prepped for Alterations Supervisor: shaved, extension tubing w/ NS and Heparin running
[2019-11-18] MEDS ORDERED: nitroGLYCERIN-Tridil 50MG/D5W 250 ML IV ONE (14:47)
[2019-11-18] MEDS ORDERED: heparin 1,000unit/ml 10ml vial 10 ML ONE (14:47)
[2019-11-18] MEDS ORDERED: verapamil 2.5 mg/ml inj IV ONE (14:47)
[2019-11-18 14:48] LABS: ANISOCYTOSIS 3+; MICROCYTOSIS 2+; PLATELET ESTIMATE NORMAL
[2019-11-18 14:50] LABS: ELLIPTOCYTES FEW; HYPOCHROMASIA 1+
[2019-11-18] MEDS ORDERED: ticagrelor 90mg tablet ONE (15:35)
[2019-11-18] MEDS ORDERED: iohexol 350 MG/ML 50ML vial IV ONE (15:41)
--- NOTE | 2019-11-18 16:15 | NUR ---
Patient arrived to PCU on gurney from labor arbitrator. Patient transferred to hospital bed. Patient oriented to room and to call light. Vital signs: T:97.3 , HR 71, RR: 16, O2 92% on room air., BP 168/116. Pain 0/10. Patient offers no complaints at this time. All immediate needs met.
[2019-11-18] MEDS ORDERED: proCHLORperazine 10 MG/2 ml inj IV PRN (16:40)
[2019-11-18] MEDS ORDERED: normal saline 1000ml 1,000 ML IV SCH (16:40)
[2019-11-18] MEDS ORDERED: OXAZEpam 15mg capsule PO PRN (16:40)
[2019-11-18] MEDS ORDERED: HYDROcodone/acetaminophen 5mg/325mg tablet PO PRN (16:40)
[2019-11-18] MEDS ORDERED: HYDROcodone/acetaminophen 10/325mg tab PO PRN (16:40)
--- NOTE | 2019-11-18 18:31 | NUR ---
Problems reprioritized. Patient report given, questions answered & plan of care reviewed with Ana María WALSH. Patient stable at transfer of care.
--- NOTE | 2019-11-18 18:35 | NUR ---
Orientee documentation: I have reviewed and agree with all interventions, assessments performed and documented by NICO Mcneil. Orientee Medication Administration: For this medication-pass time frame, all medication were reviewed, dispensed, administered and documented per hospital policy by NICO Mcneil.
--- NOTE | 2019-11-18 18:47 | NUR ---
Patient in room PCU 3026. I have received report from Wen WALSH and had the opportunity to ask questions and assume patient care.
[2019-11-18] MEDS: metoprolol tartrate 50mg tablet PO SCH (19:38)
[2019-11-18] MEDS: losartan 25mg tablet PO SCH (19:39)
[2019-11-18] MEDS: K and/or MAG REPLACEMENT MC SCH (19:51)
[2019-11-18] MEDS: cloNIDine 0.1 mg tablet PO SCH (20:32)
[2019-11-18] MEDS ORDERED: atorvastatin 20mg tablet PO SCH (21:00)
[2019-11-18] MEDS ORDERED: temazepam 15mg capsule PO PRN (21:00)
[2019-11-19 02:00] VITALS: BP 170/90
[2019-11-19 03:38] LABS: ALANINE AMINOTRANSFERASE 13 U/L (12-78); ALBUMIN 2.9 G/DL (3.4-5.0); ALBUMIN/GLOBULIN RATIO 0.6 (1.1-1.5); ALKALINE PHOSPHATASE 80 IU/L (46-116); ANION GAP 8 (8-16); ASPARTATE AMINO TRANSFERASE 17 U/L (10-37); BLOOD UREA NITROGEN 17 MG/DL (7-18); CALCIUM 8.7 MG/DL (8.5-10.1); CHLORIDE 104 MMOL/L (99-107); CHOL/HDL RATIO 3.1 (0.00-4.99); CHOLESTEROL 91 MG/DL (0-200); CREATININE 1.21 MG/DL (0.60-1.10); GLUCOSE 102 MG/DL (70-104); HDL CHOLESTEROL 29 MG/DL (35-60); LDL CHOLESTEROL 51 MG/DL (50-100); MAGNESIUM 2.3 MG/DL (1.5-2.4); PHOSPHORUS 3.7 MG/DL (2.3-4.5); POTASSIUM 3.4 MMOL/L (3.5-5.1); SODIUM 139 MMOL/L (135-145); TOTAL CARBON DIOXIDE 27.4 MMOL/L (24-32); TOTAL PROTEIN 8.1 G/DL (6.4-8.2); TRIGLYCERIDES 78 MG/DL (20-135); eGFR 61 ML/MIN
[2019-11-19 03:48] LABS: BASOPHILS # (AUTO) 0.1 X10'3 (0-0.2); BASOPHILS % (AUTO) 1.2 % (0-1); EOSINOPHILS # (AUTO) 0.1 X10'3 (0-0.9); EOSINOPHILS % (AUTO) 0.9 % (0-6); HEMATOCRIT 29.9 % (42.0-52.0); LYMPHOCYTES # (AUTO) 1.7 X10'3 (1.1-4.8); LYMPHOCYTES % (AUTO) 17.4 % (21-51); MEAN CORPUSCULAR HEMOGLOBIN 18.6 PG (27.0-31.0); MEAN CORPUSCULAR HGB CONC 30.1 g/dL (33.0-36.5); MEAN CORPUSCULAR VOLUME 61.8 FL (78-98); MEAN PLATELET VOLUME 8.9 FL (7.4-10.4); MONOCYTES # (AUTO) 0.9 X10'3 (0-0.9); MONOCYTES % (AUTO) 8.9 % (2-12); NEUTROPHILS % (AUTO) 71.6 % (42-75); PLATELET COUNT 389 X10'3 (140-440); RED BLOOD COUNT 4.83 X10'6 (4.70-6.10); RED CELL DISTRIBUTION WIDTH 20.9 % (11.5-14.5); WHITE BLOOD COUNT 9.7 X10'3 (4.5-11.0)
[2019-11-19] MEDS: heparin 10,000 units/1 ML INJ IV PRN (04:02)
[2019-11-19] MEDS: heparin 25,000 UNIT/250ml bag 250 ML IV SCH (04:03)
[2019-11-19 04:55] LABS: PLATELET ESTIMATE NORMAL
[2019-11-19 04:56] LABS: ANISOCYTOSIS 3+; HYPOCHROMASIA 2+; MICROCYTOSIS 2+; POIKILOCYTOSIS 2+
[2019-11-19] MEDS: potassium Cl 20 mEq SR tablet PO PRN ×2 (04:59→11:00)
--- NOTE | 2019-11-19 06:07 | NUR ---
Problems reprioritized. Patient report given, questions answered & plan of care reviewed with Wen WALSH.
--- NOTE | 2019-11-19 06:39 | NUR ---
Patient in room PCU 3026. I have received report from Ana María WALSH and had the opportunity to ask questions and assume patient care. Patient awake in bed. Offers no complaints at this time. All immediate needs met.
[2019-11-19 07:00] VITALS: BP 192/128
[2019-11-19] MEDS: metoprolol tartrate 50mg tablet PO SCH (07:43)
[2019-11-19] MEDS: losartan 25mg tablet PO SCH (07:43)
[2019-11-19] MEDS: cloNIDine 0.1 mg tablet PO SCH (07:44)
[2019-11-19] MEDS: K and/or MAG REPLACEMENT MC SCH (08:00)
[2019-11-19] MEDS ORDERED: ezetimibe 10mg tablet PO SCH (08:00)
[2019-11-19] MEDS ORDERED: pantoprazole 40mg Tablet.DR PO SCH (08:00)
[2019-11-19] MEDS ORDERED: nicotine 14mg patch - 24hr TD SCH (08:00)
[2019-11-19] MEDS ORDERED: loratadine 10mg tablet PO SCH (08:00)
[2019-11-19] MEDS ORDERED: aspirin 325mg tablet PO SCH (08:30)
--- NOTE | 2019-11-19 09:38 | NUR ---
Paged Dr. Harrington : PAGER ID: [phone] MESSAGE: RE: Lydia Valentin [phone]. FYI - Dr. Cantu consulted and patient has personal issues to resolve and is agreeable to return for CABG in near future. Would like to D/C today. SBP still 174/119 after all a.m. BP meds. Thank you. Wen [phone]
--- NOTE | 2019-11-19 09:51 | NUR ---
Paged Dr. Harrington: PAGER ID: [phone] MESSAGE: RE: Valentin Freeman [id number]. Per Harini Peña: BP D/C meds: Losartan 50mg daily, Lopressor 50mg BID, Clonidine 0.1 mg TID, Eliquis 5 mg BID. Wen [phone]
[2019-11-19] MEDS ORDERED: NITR0.4T51 SL (10:20)
[2019-11-19] MEDS ORDERED: APIX5TAB3 PO (10:20)
[2019-11-19] MEDS ORDERED: LOSA50TA3 PO (10:20)
[2019-11-19] MEDS ORDERED: METO50TA16 PO (10:20)
--- NOTE | 2019-11-19 10:39 | NUR ---
New order from Harini Rodriguez 25mg PO once.
[2019-11-19] MEDS ORDERED: losartan 25mg tablet PO SCH (10:40)
[2019-11-19 11:00] VITALS: BP 176/126
--- NOTE | 2019-11-19 12:25 | NUR ---
Patient stable for discharge per MD orders. All discharge instructions reviewed with patient and all questions answered. Patient to follow up with Dr. Cantu for scheduling appointment for CABG. New prescriptions sent to [facility]. Patient educated on sign/symptoms NSTEMI and to call 911 with new onset chest pain. All patient belongings packed up and sent with patient in private vehicle to home. PIV discontinued. Cannula intact. Telemetry monitoring discontinued. Patient walked to lobby by [facility].
== END 2019-11-19 12:25 | disposition home or self-care (01) | DRG 190 ==
LOC: ER 06:13 → ED HOLD 13:40 → PCU 3S 16:04
PROVIDERS: ADMIT Family Medicine; ATTEND Family Medicine
PROC: 4A023N7 Measurement of Cardiac Sampling and Pressure, Left Heart, Percutaneous Approach (ICD-10-PCS; principal; 2019-11-18)
PROC: B2111ZZ Fluoroscopy of Multiple Coronary Arteries using Low Osmolar Contrast (ICD-10-PCS; 2019-11-18)
PROC: B2151ZZ Fluoroscopy of Left Heart using Low Osmolar Contrast (ICD-10-PCS; 2019-11-18)
DX: I21.4 Non-ST elevation (NSTEMI) myocardial infarction (principal); G93.41 Metabolic encephalopathy; I50.33 Acute on chronic diastolic (congestive) heart failure; I13.0 Hypertensive heart and chronic kidney disease with heart failure and stage 1 through stage 4 chronic kidney disease, or unspecified chronic kidney disease; N18.3 Chronic kidney disease, stage 3 (moderate); D64.9 Anemia, unspecified; E78.5 Hyperlipidemia, unspecified; I25.10 Atherosclerotic heart disease of native coronary artery without angina pectoris; I25.2 Old myocardial infarction; I48.0 Paroxysmal atrial fibrillation; K21.9 Gastro-esophageal reflux disease without esophagitis; Z86.73 Personal history of transient ischemic attack (TIA), and cerebral infarction without residual deficits; Z87.891 Personal history of nicotine dependence; Z91.14 Patient's other noncompliance with medication regimen; Z95.5 Presence of coronary angioplasty implant and graft
CPT/HCPCS: 36415; 71045; 80053; 80061; 80305; 83735; 83880; 84100; 84145; 84484; 85025; 85610; 85730; 87081; 93005; 93458; 96365; 96375; 99152; 99153; 99291; A4620; A5120; A6258; C1769; C1894; G0378; J0360; J1644; J1650; J1940; J2001; J2060; J2250; J3010; J3475; J3490; Q9967

== ENCOUNTER 2019-12-17 20:33 | Inpatient (IN) | payer MEDICAID ==
[~2019-12-17] VITALS: Ht 175.3 cm; Wt 95.5 kg
[~2019-12-17 20:33] MED LIST changes: -ALBU8.5H8 INH; -AZIT500T9 PO; -CARCD120C PO; +CLON-473 PO; -CLON0.1T PO; -FLUT1DIS4 INH; -METO-395 PO; +METO50TA16 PO; +NITR0.4T51 SL
[2019-12-17] MEDS ORDERED: iohexol 350MG/ML 100ml bottle IV ONE (20:56)
--- NOTE | 2019-12-17 21:00 | NUR ---
Patient had neuro tele eval done by neurologist about this time, came back from CTA of head and neurologist was waiting to evaluate him. He told me that it could have been around 1600 today that he noted the slurring or around [id number] unsure of time of event. He is on [place] so not a canidate for iv TPA. Waiting on CTA read to see if he needs to have interventional procedure.
[2019-12-17 21:11] LABS: PARTIAL THROMBOPLASTIN TIME 31 SECONDS (22-32)
[2019-12-17 21:16] LABS: ALANINE AMINOTRANSFERASE 21 U/L (12-78); ALBUMIN 3.8 G/DL (3.4-5.0); ALBUMIN/GLOBULIN RATIO 0.8 (1.1-1.5); ALKALINE PHOSPHATASE 111 IU/L (46-116); ANION GAP 10 (8-16); ASPARTATE AMINO TRANSFERASE 17 U/L (10-37); BILIRUBIN,TOTAL 0.6 MG/DL (0.1-1.0); BLOOD UREA NITROGEN 15 MG/DL (7-18); BUN/CREATININE RATIO 9.4 (5.4-32.0); CALCIUM 8.7 MG/DL (8.5-10.1); CHLORIDE 102 MMOL/L (99-107); GLUCOSE 112 MG/DL (70-104); POTASSIUM 3.7 MMOL/L (3.5-5.1); SODIUM 138 MMOL/L (135-145); TOTAL CARBON DIOXIDE 26.2 MMOL/L (24-32); TOTAL PROTEIN 8.7 G/DL (6.4-8.2); eGFR 44 ML/MIN
[2019-12-17] MEDS ORDERED: aspirin 325mg tablet PO ONE (21:20)
[2019-12-17 21:29] LABS: BASOPHILS # (AUTO) 0.1 X10'3 (0-0.2); BASOPHILS % (AUTO) 1.8 % (0-1); EOSINOPHILS # (AUTO) 0.1 X10'3 (0-0.9); EOSINOPHILS % (AUTO) 1.8 % (0-6); HEMATOCRIT 30.4 % (42.0-52.0); HEMOGLOBIN 8.8 g/dl (14.0-17.9); LYMPHOCYTES # (AUTO) 2.6 X10'3 (1.1-4.8); LYMPHOCYTES % (AUTO) 37.8 % (21-51); MEAN CORPUSCULAR HEMOGLOBIN 17.7 PG (27.0-31.0); MEAN CORPUSCULAR VOLUME 61.2 FL (78-98); MONOCYTES # (AUTO) 0.8 X10'3 (0-0.9); MONOCYTES % (AUTO) 11.4 % (2-12); NEUTROPHILS # (AUTO) 3.3 X10'3 (1.8-7.7); NEUTROPHILS % (AUTO) 47.2 % (42-75); PLATELET COUNT 225 X10'3 (140-440); RED BLOOD COUNT 4.97 X10'6 (4.70-6.10)
[2019-12-17] MEDS ORDERED: HYDR25TA4 PO (21:37)
[2019-12-17] MEDS ORDERED: LOSA25TA96 PO (21:37)
--- NOTE | 2019-12-17 21:40 | NUR ---
I noted that he had elevated sbp of 231/138 so I asked the nurse taking care of him to [facility] ER MD to ask for b/p medicine. Per the patient he has been out of some of his htn meds for awhile so that's why his b/p is so elevated most likely.
--- NOTE | 2019-12-17 21:41 | NUR ---
Dr. Arita notified of pt's bp of 231/138 and Pulse in the 60's. He will put in an order for Hypertensive medication
[2019-12-17] MEDS ORDERED: labetalol 20mg/4ml (5mg/ml) syringe IV ONE (21:45)
[2019-12-17] MEDS ORDERED: hydrALAZINE 20mg/ml inj. IV ONE (21:45)
[2019-12-17 21:46] LABS: TROPONIN I < 0.04 NG/ML (0.0-0.05)
[2019-12-17] MEDS ORDERED: NITR0.4T48 SL (22:02)
[2019-12-17] MEDS ORDERED: METO50TA17 PO (22:02)
[2019-12-17] MEDS ORDERED: APIX5TAB3 PO (22:02)
[2019-12-17] MEDS ORDERED: labetalol 20mg/4ml (5mg/ml) syringe IV STA (22:16)
--- NOTE | 2019-12-17 22:18 | NUR ---
DR LARA MADE AWARE PT'S BP IS NOW 218/132
[2019-12-17 22:38] LABS: PLATELET ESTIMATE NORMAL
[2019-12-17 22:40] LABS: ANISOCYTOSIS 2+; ELLIPTOCYTES 2+; HYPOCHROMASIA 1+; MICROCYTOSIS 2+
[2019-12-17] MEDS ORDERED: cloNIDine 0.1 mg tablet PO ONE (22:40)
[2019-12-17] MEDS ORDERED: cloNIDine 0.1 MG/24 HOUR patch (7 day patch) TD ONE (23:00)
[2019-12-17] MEDS ORDERED: acetaminophen 325mg tablet PO PRN (23:00)
[2019-12-17] MEDS ORDERED: mag hydrox/Alum hydrox/simeth 30ml oral suspension PO PRN (23:00)
[2019-12-17] MEDS ORDERED: magnesium hydroxide 30ml (MOM) UD suspension PO PRN (23:00)
[2019-12-17] MEDS ORDERED: ondansetron/PF 4mg/2ml inj IV PRN (23:00)
[2019-12-17] MEDS ORDERED: nitroGLYCERIN 0.4mg SUBLingual tab SL SCH (23:05)
--- NOTE | 2019-12-17 23:36 | NUR ---
notified Dr. Pascal of pt's BP 1197/122 and at times going up to 200's systolic. Per Dr. Pascal, pt has a rebound blood pressure. He is ok with that for now until Blood pressure medicatiosn kick in. Pt had PO catapress and a clonidine patch placed on upper left chest wall.
[2019-12-18] VITALS: BP 217/110
[2019-12-18 00:36] LABS: HEMOGLOBIN A1C 6.4 % (4.5-6.2)
--- NOTE | 2019-12-18 00:49 | NUR ---
Pt jerked and thrashed when attempting to get nasal swab. Unable to collect at this time.
[2019-12-18 05:00] LABS: BASOPHILS # (AUTO) 0.1 X10'3 (0-0.2); BASOPHILS % (AUTO) 1.1 % (0-1); EOSINOPHILS # (AUTO) 0.1 X10'3 (0-0.9); HEMATOCRIT 30.9 % (42.0-52.0); HEMOGLOBIN 8.9 g/dl (14.0-17.9); LYMPHOCYTES # (AUTO) 2.3 X10'3 (1.1-4.8); LYMPHOCYTES % (AUTO) 30.5 % (21-51); MEAN CORPUSCULAR HEMOGLOBIN 17.6 PG (27.0-31.0); MEAN CORPUSCULAR HGB CONC 28.9 g/dL (33.0-36.5); MEAN CORPUSCULAR VOLUME 60.8 FL (78-98); MEAN PLATELET VOLUME 8.8 FL (7.4-10.4); MONOCYTES # (AUTO) 0.6 X10'3 (0-0.9); MONOCYTES % (AUTO) 7.8 % (2-12); NEUTROPHILS # (AUTO) 4.5 X10'3 (1.8-7.7); NEUTROPHILS % (AUTO) 59.6 % (42-75); PLATELET COUNT 243 X10'3 (140-440); RED BLOOD COUNT 5.08 X10'6 (4.70-6.10); RED CELL DISTRIBUTION WIDTH 19.6 % (11.5-14.5); WHITE BLOOD COUNT 7.5 X10'3 (4.5-11.0)
[2019-12-18 05:11] LABS: ALANINE AMINOTRANSFERASE 19 U/L (12-78); ALBUMIN 3.8 G/DL (3.4-5.0); ALBUMIN/GLOBULIN RATIO 0.8 (1.1-1.5); ALKALINE PHOSPHATASE 102 IU/L (46-116); ANION GAP 9 (8-16); ASPARTATE AMINO TRANSFERASE 18 U/L (10-37); BILIRUBIN,TOTAL 0.6 MG/DL (0.1-1.0); BLOOD UREA NITROGEN 16 MG/DL (7-18); BUN/CREATININE RATIO 10.4 (5.4-32.0); CALCIUM 8.9 MG/DL (8.5-10.1); CHLORIDE 101 MMOL/L (99-107); CREATININE 1.54 MG/DL (0.60-1.10); GLUCOSE 126 MG/DL (70-104); POTASSIUM 3.4 MMOL/L (3.5-5.1); SODIUM 137 MMOL/L (135-145); TOTAL PROTEIN 8.7 G/DL (6.4-8.2); eGFR 46 ML/MIN
[2019-12-18 05:12] LABS: CHOL/HDL RATIO 3.9 (0.00-4.99); CHOLESTEROL 134 MG/DL (0-200); HDL CHOLESTEROL 34 MG/DL (35-60); LDL CHOLESTEROL 80 MG/DL (50-100); TRIGLYCERIDES 141 MG/DL (20-135)
--- NOTE | 2019-12-18 06:30 | NUR ---
Patient in room JENELLE 360. I have received report from Verónica WALSH and had the opportunity to ask questions and assume patient care.
[2019-12-18] MEDS: apixaban 5mg tablet PO SCH ×2 (07:15→21:25)
[2019-12-18] MEDS: pantoprazole 40mg Tablet.DR PO SCH (07:15)
[2019-12-18] MEDS: aspirin 81mg tablet.DR PO SCH (07:15)
[2019-12-18] MEDS: ezetimibe 10mg tablet PO SCH (07:15)
[2019-12-18 08:00] VITALS: BP 213/119
[2019-12-18] MEDS: enalaprilat dihydrate 2.5mg/2ml vial IV PRN ×2 (08:00→18:39)
--- NOTE | 2019-12-18 08:00 | NUR ---
0800- I paged Dr. Madrid about BP and MRI orders. Addendum: 12/18/19 at 1332 by Halle Mayes RN [phone] late note, DR. Kamila roldan vasotec fot elevate BP and MRI
[2019-12-18 09:30] VITALS: BP 189/100
[2019-12-18] MEDS ORDERED: LORazepam 2 mg/ml vial IV STA (10:35)
[2019-12-18] MEDS ORDERED: LORazepam 2 mg/ml vial ONE (10:39)
[2019-12-18 11:30] VITALS: BP 194/110
[2019-12-18] MEDS ORDERED: magnesium 2GM in 50ml NS 50 ML IV PRN (12:10)
[2019-12-18] MEDS ORDERED: magnesium Cl slow-release 64mg tablet PO PRN (12:10)
[2019-12-18] MEDS ORDERED: magnesium 4gm in 100ml NS 100 ML IV PRN (12:10)
[2019-12-18] MEDS ORDERED: potassium CL 10mEq/100ml bag 100 ML IV PRN (12:10)
[2019-12-18] MEDS ORDERED: potassium Cl 20 mEq SR tablet PO PRN (12:10)
[2019-12-18] MEDS: potassium Cl 20 mEq SR tablet PO PRN ×2 (12:41→17:05)
[2019-12-18 13:02] LABS: MAGNESIUM 1.9 MG/DL (1.5-2.4); POTASSIUM 3.7 MMOL/L (3.5-5.1)
[2019-12-18 15:30] VITALS: BP 199/116
[2019-12-18] MEDS ORDERED: aspirin 81mg tablet.DR PO ONE (18:10)
--- NOTE | 2019-12-18 18:33 | NUR ---
Problems reprioritized. Patient report given, questions answered & plan of care reviewed with Brigette WALSH.
--- NOTE | 2019-12-18 18:47 | NUR ---
I spoke to Dr. Harrington about patient elevated BP and new parameters. He said to give the vasotec and start him on the 81mg asa that tele neuro recommended and restart po BP meds in am.
--- NOTE | 2019-12-18 18:52 | NUR ---
Patient in room JENELLE 360. I have received report from Erica WALSH and had the opportunity to ask questions and assume patient care.
[2019-12-18 20:00] VITALS: BP 223/134
--- NOTE | 2019-12-18 21:21 | NUR ---
Pt requested sleep aid, called Dr. Pascal auth Melatonin 3mg
[2019-12-18] MEDS: atorvastatin 20mg tablet PO SCH (21:26)
[2019-12-18] MEDS: Melatonin 3mg tablet PO SCH (22:00)
[2019-12-19] VITALS (9 sets, daily range): BP systolic 160–231; BP diastolic 100–118
[2019-12-19 05:02] LABS: BASOPHILS # (AUTO) 0.1 X10'3 (0-0.2); BASOPHILS % (AUTO) 1.2 % (0-1); EOSINOPHILS # (AUTO) 0.1 X10'3 (0-0.9); EOSINOPHILS % (AUTO) 1.2 % (0-6); HEMATOCRIT 29.6 % (42.0-52.0); HEMOGLOBIN 8.6 g/dl (14.0-17.9); LYMPHOCYTES # (AUTO) 1.7 X10'3 (1.1-4.8); LYMPHOCYTES % (AUTO) 23.4 % (21-51); MEAN CORPUSCULAR HEMOGLOBIN 17.8 PG (27.0-31.0); MEAN CORPUSCULAR HGB CONC 29.2 g/dL (33.0-36.5); MEAN CORPUSCULAR VOLUME 60.8 FL (78-98); MEAN PLATELET VOLUME 9.2 FL (7.4-10.4); MONOCYTES # (AUTO) 0.8 X10'3 (0-0.9); MONOCYTES % (AUTO) 11.5 % (2-12); NEUTROPHILS # (AUTO) 4.4 X10'3 (1.8-7.7); NEUTROPHILS % (AUTO) 62.7 % (42-75); PLATELET COUNT 235 X10'3 (140-440); RED BLOOD COUNT 4.86 X10'6 (4.70-6.10); RED CELL DISTRIBUTION WIDTH 19.9 % (11.5-14.5); WHITE BLOOD COUNT 7.1 X10'3 (4.5-11.0)
[2019-12-19 05:16] LABS: ALANINE AMINOTRANSFERASE 26 U/L (12-78); ALBUMIN 3.8 G/DL (3.4-5.0); ALBUMIN/GLOBULIN RATIO 0.8 (1.1-1.5); ALKALINE PHOSPHATASE 98 IU/L (46-116); ANION GAP 8 (8-16); ASPARTATE AMINO TRANSFERASE 34 U/L (10-37); BILIRUBIN,TOTAL 1.2 MG/DL (0.1-1.0); BLOOD UREA NITROGEN 18 MG/DL (7-18); BUN/CREATININE RATIO 11.7 (5.4-32.0); CHLORIDE 103 MMOL/L (99-107); CREATININE 1.54 MG/DL (0.60-1.10); GLUCOSE 118 MG/DL (70-104); POTASSIUM 3.8 MMOL/L (3.5-5.1); SODIUM 137 MMOL/L (135-145); TOTAL PROTEIN 8.4 G/DL (6.4-8.2); eGFR 46 ML/MIN
--- NOTE | 2019-12-19 06:40 | NUR ---
Patient in room JENELLE 360. I have received report from Brigette WALSH and had the opportunity to ask questions and assume patient care.
[2019-12-19] MEDS ORDERED: aspirin 81mg tablet.DR PO SCH (08:00)
[2019-12-19] MEDS: losartan 25mg tablet PO SCH ×2 (08:00→08:09)
[2019-12-19] MEDS: HYDROchlorothiazide 25mg tablet PO SCH ×2 (08:00→08:10)
[2019-12-19] MEDS: metoprolol tartrate 50mg tablet PO SCH ×3 (08:00→20:03)
[2019-12-19] MEDS: pantoprazole 40mg Tablet.DR PO SCH (08:09)
[2019-12-19] MEDS: ezetimibe 10mg tablet PO SCH (08:10)
[2019-12-19] MEDS: apixaban 5mg tablet PO SCH ×2 (08:10→20:02)
[2019-12-19] MEDS: aspirin 81mg tablet.DR PO SCH (08:10)
[2019-12-19] MEDS: cloNIDine 0.1 mg tablet PO SCH ×3 (10:42→21:34)
--- NOTE | 2019-12-19 18:39 | NUR ---
Patient report given to Jocelin WALSH
--- NOTE | 2019-12-19 18:39 | NUR ---
Patient in room JENELLE 360. I have received report from NICO Maldonado and had the opportunity to ask questions and assume patient care.
[2019-12-19] MEDS: atorvastatin 20mg tablet PO SCH (21:34)
[2019-12-19] MEDS: Melatonin 3mg tablet PO SCH (21:34)
[2019-12-20] VITALS: BP 175/111
--- NOTE | 2019-12-20 06:40 | NUR ---
Problems reprioritized. Patient report given, questions answered & plan of care reviewed with NICO Merchant.
[2019-12-20 07:07] LABS: BASOPHILS # (AUTO) 0.1 X10'3 (0-0.2); BASOPHILS % (AUTO) 1.1 % (0-1); EOSINOPHILS # (AUTO) 0.1 X10'3 (0-0.9); EOSINOPHILS % (AUTO) 1.5 % (0-6); HEMATOCRIT 31.3 % (42.0-52.0); HEMOGLOBIN 9.1 g/dl (14.0-17.9); LYMPHOCYTES # (AUTO) 2.4 X10'3 (1.1-4.8); LYMPHOCYTES % (AUTO) 30.6 % (21-51); MEAN CORPUSCULAR HEMOGLOBIN 17.7 PG (27.0-31.0); MEAN CORPUSCULAR HGB CONC 28.9 g/dL (33.0-36.5); MEAN CORPUSCULAR VOLUME 61.3 FL (78-98); MEAN PLATELET VOLUME 8.5 FL (7.4-10.4); MONOCYTES # (AUTO) 0.9 X10'3 (0-0.9); MONOCYTES % (AUTO) 11.9 % (2-12); NEUTROPHILS # (AUTO) 4.4 X10'3 (1.8-7.7); NEUTROPHILS % (AUTO) 54.9 % (42-75); PLATELET COUNT 248 X10'3 (140-440); RED BLOOD COUNT 5.11 X10'6 (4.70-6.10); RED CELL DISTRIBUTION WIDTH 19.8 % (11.5-14.5); WHITE BLOOD COUNT 7.9 X10'3 (4.5-11.0)
[2019-12-20] MEDS: enalaprilat dihydrate 2.5mg/2ml vial IV PRN ×2 (07:24→18:00)
[2019-12-20] MEDS: ezetimibe 10mg tablet PO SCH (07:32)
[2019-12-20] MEDS: pantoprazole 40mg Tablet.DR PO SCH (07:32)
[2019-12-20] MEDS: apixaban 5mg tablet PO SCH ×2 (07:32→19:48)
[2019-12-20] MEDS: aspirin 81mg tablet.DR PO SCH (07:32)
[2019-12-20 07:36] LABS: ALANINE AMINOTRANSFERASE 29 U/L (12-78); ALBUMIN 3.9 G/DL (3.4-5.0); ALBUMIN/GLOBULIN RATIO 0.8 (1.1-1.5); ALKALINE PHOSPHATASE 97 IU/L (46-116); ANION GAP 9 (8-16); ASPARTATE AMINO TRANSFERASE 35 U/L (10-37); BILIRUBIN,TOTAL 1.6 MG/DL (0.1-1.0); BLOOD UREA NITROGEN 25 MG/DL (7-18); BUN/CREATININE RATIO 14.7 (5.4-32.0); CALCIUM 9.1 MG/DL (8.5-10.1); CHLORIDE 101 MMOL/L (99-107); GLUCOSE 106 MG/DL (70-104); POTASSIUM 4.1 MMOL/L (3.5-5.1); SODIUM 136 MMOL/L (135-145); TOTAL CARBON DIOXIDE 25.9 MMOL/L (24-32); TOTAL PROTEIN 8.8 G/DL (6.4-8.2); eGFR 41 ML/MIN
[2019-12-20] MEDS: metoprolol tartrate 50mg tablet PO SCH ×2 (07:38→19:48)
[2019-12-20] MEDS: HYDROchlorothiazide 25mg tablet PO SCH (07:38)
[2019-12-20] MEDS: losartan 25mg tablet PO SCH (07:38)
[2019-12-20] MEDS: cloNIDine 0.1 mg tablet PO SCH ×3 (07:38→19:48)
[2019-12-20 08:31] LABS: ANISOCYTOSIS 2+; HYPOCHROMASIA 2+; LARGE PLATELETS FEW; MICROCYTOSIS 2+; PLATELET ESTIMATE NORMAL; POLYCHROMASIA FEW
[2019-12-20 09:15] VITALS: BP 151/104
[2019-12-20 12:04] VITALS: BP 144/96
[2019-12-20 18:00] VITALS: BP 196/115
[2019-12-20] MEDS: atorvastatin 20mg tablet PO SCH (19:49)
[2019-12-20 21:14] VITALS: BP 154/105
[2019-12-20] MEDS: Melatonin 3mg tablet PO SCH (21:57)
[2019-12-21] VITALS: BP 126/59
[2019-12-21 05:07] LABS: BASOPHILS # (AUTO) 0.1 X10'3 (0-0.2); EOSINOPHILS # (AUTO) 0.1 X10'3 (0-0.9); EOSINOPHILS % (AUTO) 0.9 % (0-6); HEMATOCRIT 28.7 % (42.0-52.0); HEMOGLOBIN 8.3 g/dl (14.0-17.9); LYMPHOCYTES # (AUTO) 2.1 X10'3 (1.1-4.8); LYMPHOCYTES % (AUTO) 25.6 % (21-51); MEAN CORPUSCULAR HEMOGLOBIN 17.5 PG (27.0-31.0); MEAN CORPUSCULAR VOLUME 60.2 FL (78-98); MEAN PLATELET VOLUME 9.2 FL (7.4-10.4); MONOCYTES # (AUTO) 1.3 X10'3 (0-0.9); MONOCYTES % (AUTO) 16.1 % (2-12); NEUTROPHILS # (AUTO) 4.6 X10'3 (1.8-7.7); NEUTROPHILS % (AUTO) 56.4 % (42-75); PLATELET COUNT 228 X10'3 (140-440); RED BLOOD COUNT 4.76 X10'6 (4.70-6.10); RED CELL DISTRIBUTION WIDTH 19.6 % (11.5-14.5); WHITE BLOOD COUNT 8.2 X10'3 (4.5-11.0)
[2019-12-21 05:22] LABS: ALANINE AMINOTRANSFERASE 23 U/L (12-78); ALBUMIN 3.6 G/DL (3.4-5.0); ALBUMIN/GLOBULIN RATIO 0.8 (1.1-1.5); ALKALINE PHOSPHATASE 88 IU/L (46-116); ANION GAP 12 (8-16); ASPARTATE AMINO TRANSFERASE 30 U/L (10-37); BILIRUBIN,TOTAL 1.2 MG/DL (0.1-1.0); BLOOD UREA NITROGEN 34 MG/DL (7-18); BUN/CREATININE RATIO 14.8 (5.4-32.0); CALCIUM 8.8 MG/DL (8.5-10.1); CHLORIDE 101 MMOL/L (99-107); CREATININE 2.29 MG/DL (0.60-1.10); GLUCOSE 115 MG/DL (70-104); POTASSIUM 3.9 MMOL/L (3.5-5.1); SODIUM 137 MMOL/L (135-145); TOTAL CARBON DIOXIDE 24.3 MMOL/L (24-32); TOTAL PROTEIN 8.3 G/DL (6.4-8.2); eGFR 29 ML/MIN
[2019-12-21 05:54] LABS: ANISOCYTOSIS 2+; MICROCYTOSIS 2+; PLATELET ESTIMATE NORMAL
[2019-12-21 05:55] LABS: HYPOCHROMASIA 2+
[2019-12-21 05:56] LABS: ELLIPTOCYTES 1+
--- NOTE | 2019-12-21 06:39 | NUR ---
Problems reprioritized. Patient report given, questions answered & plan of care reviewed with NICO Maldonado.
--- NOTE | 2019-12-21 06:44 | NUR ---
Patient in room JENELLE 360. I have received report from Yesi WALSH and had the opportunity to ask questions and assume patient care.
[2019-12-21 07:00] VITALS: BP 186/92
[2019-12-21] MEDS: ezetimibe 10mg tablet PO SCH (09:03)
[2019-12-21] MEDS: HYDROchlorothiazide 25mg tablet PO SCH (09:03)
[2019-12-21] MEDS: cloNIDine 0.1 mg tablet PO SCH ×3 (09:03→20:14)
[2019-12-21] MEDS: aspirin 81mg tablet.DR PO SCH (09:03)
[2019-12-21] MEDS: pantoprazole 40mg Tablet.DR PO SCH (09:03)
[2019-12-21] MEDS: apixaban 5mg tablet PO SCH ×2 (09:03→20:15)
[2019-12-21] MEDS: losartan 25mg tablet PO SCH (09:03)
[2019-12-21] MEDS: metoprolol tartrate 50mg tablet PO SCH ×2 (09:04→20:14)
[2019-12-21] MEDS ORDERED: normal saline 1000ml 1,000 ML IV SCH (09:30)
[2019-12-21 11:00] VITALS: BP 148/81
[2019-12-21 18:00] VITALS: BP 164/82
--- NOTE | 2019-12-21 18:22 | NUR ---
Problems reprioritized. Patient report given, questions answered & plan of care reviewed with Libertad WALSH.
--- NOTE | 2019-12-21 18:22 | NUR ---
Patient in room JENELLE 360. I have received report from Erica WALSH and had the opportunity to ask questions and assume patient care.
[2019-12-21] MEDS: atorvastatin 20mg tablet PO SCH (20:13)
[2019-12-22] VITALS: BP 157/91
[2019-12-22 05:02] LABS: BASOPHILS # (AUTO) 0.1 X10'3 (0-0.2); BASOPHILS % (AUTO) 1.1 % (0-1); EOSINOPHILS # (AUTO) 0.1 X10'3 (0-0.9); EOSINOPHILS % (AUTO) 1.7 % (0-6); HEMATOCRIT 26.7 % (42.0-52.0); HEMOGLOBIN 7.7 g/dl (14.0-17.9); LYMPHOCYTES # (AUTO) 2.1 X10'3 (1.1-4.8); LYMPHOCYTES % (AUTO) 31.7 % (21-51); MEAN CORPUSCULAR HEMOGLOBIN 17.4 PG (27.0-31.0); MEAN CORPUSCULAR VOLUME 60.2 FL (78-98); MONOCYTES # (AUTO) 0.8 X10'3 (0-0.9); NEUTROPHILS # (AUTO) 3.5 X10'3 (1.8-7.7); NEUTROPHILS % (AUTO) 53.5 % (42-75); PLATELET COUNT 225 X10'3 (140-440); RED BLOOD COUNT 4.44 X10'6 (4.70-6.10); RED CELL DISTRIBUTION WIDTH 19.6 % (11.5-14.5); WHITE BLOOD COUNT 6.5 X10'3 (4.5-11.0)
[2019-12-22 05:21] LABS: ALANINE AMINOTRANSFERASE 27 U/L (12-78); ALBUMIN 3.4 G/DL (3.4-5.0); ALBUMIN/GLOBULIN RATIO 0.8 (1.1-1.5); ALKALINE PHOSPHATASE 84 IU/L (46-116); ANION GAP 9 (8-16); ASPARTATE AMINO TRANSFERASE 25 U/L (10-37); BILIRUBIN,TOTAL 1.1 MG/DL (0.1-1.0); BLOOD UREA NITROGEN 33 MG/DL (7-18); BUN/CREATININE RATIO 16.8 (5.4-32.0); CALCIUM 8.7 MG/DL (8.5-10.1); CHLORIDE 103 MMOL/L (99-107); CREATININE 1.97 MG/DL (0.60-1.10); GLUCOSE 101 MG/DL (70-104); POTASSIUM 3.8 MMOL/L (3.5-5.1); SODIUM 137 MMOL/L (135-145); TOTAL CARBON DIOXIDE 25.1 MMOL/L (24-32); TOTAL PROTEIN 7.8 G/DL (6.4-8.2); eGFR 35 ML/MIN
--- NOTE | 2019-12-22 06:28 | NUR ---
Problems reprioritized. Patient report given, questions answered & plan of care reviewed with Lakesha WALSH.
[2019-12-22 06:42] LABS: PLATELET ESTIMATE NORMAL; POLYCHROMASIA FEW
[2019-12-22 06:43] LABS: ANISOCYTOSIS 2+; BURR CELLS FEW; ELLIPTOCYTES FEW; HYPOCHROMASIA 2+; MICROCYTOSIS 2+; SCHISTOCYTES FEW; STOMATOCYTES FEW
[2019-12-22 07:00] VITALS: BP 171/88
[2019-12-22] MEDS: pantoprazole 40mg Tablet.DR PO SCH (07:49)
[2019-12-22] MEDS: aspirin 81mg tablet.DR PO SCH (07:49)
[2019-12-22] MEDS: ezetimibe 10mg tablet PO SCH (07:49)
[2019-12-22] MEDS: metoprolol tartrate 50mg tablet PO SCH ×2 (07:49→20:22)
[2019-12-22] MEDS: cloNIDine 0.1 mg tablet PO SCH ×3 (07:49→20:22)
[2019-12-22] MEDS: losartan 25mg tablet PO SCH (07:49)
[2019-12-22] MEDS: apixaban 5mg tablet PO SCH ×2 (07:50→20:20)
[2019-12-22 11:00] VITALS: BP 112/88
--- NOTE | 2019-12-22 17:16 | NUR ---
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 Pt PO 50% avg mechanical soft/grind all diet per CHOCOLATE MOLDER recs; receiving extra gravy w/ meals to aid in PO tolerance per MD order as well. RN reports pt has no need for adaptive wear at this time has been able to self-feed. RD d/w RN regarding iron panel if MD agreeable given microcytic anemia DX MCV 60.2. TG 141 receiving lipitor. LBM 12/19. Ensure pudding added to lunches for additional protein/kcals; dietary notified. Will continue to monitor. Rec: 1. continue mechanical soft/grind/thin diet per CHOCOLATE MOLDER; extra gravy all meals per MD; encourage PO 2. monitor need for adaptive wear 3. ensure pudding at lunches; monitor for further ONS needs 4. routine bowel care 5. wt per rx Addendum: 12/22/19 at [address] Amended: Links added.
--- NOTE | 2019-12-22 18:30 | NUR ---
Patient in room JENELLE 360. I have received report from Lakesha Akins and had the opportunity to ask questions and assume patient care.
[2019-12-22 20:00] VITALS: BP 190/97
[2019-12-22] MEDS: atorvastatin 20mg tablet PO SCH (20:23)
[2019-12-22] MEDS: temazepam 15mg capsule PO PRN (22:26)
[2019-12-23] VITALS: BP 148/85
--- NOTE | 2019-12-23 06:27 | NUR ---
Problems reprioritized. Patient report given, questions answered & plan of care reviewed with Lakesha WALSH.
[2019-12-23] MEDS: losartan 25mg tablet PO SCH (07:52)
[2019-12-23] MEDS: cloNIDine 0.1 mg tablet PO SCH ×3 (07:52→20:43)
[2019-12-23] MEDS: ezetimibe 10mg tablet PO SCH (07:52)
[2019-12-23] MEDS: pantoprazole 40mg Tablet.DR PO SCH (07:52)
[2019-12-23] MEDS: aspirin 81mg tablet.DR PO SCH (07:52)
[2019-12-23 08:00] VITALS: BP 163/88
[2019-12-23] MEDS: metoprolol tartrate 50mg tablet PO SCH ×2 (08:22→20:44)
[2019-12-23] MEDS: apixaban 5mg tablet PO SCH ×2 (08:24→20:43)
[2019-12-23 11:00] VITALS: BP 136/89
[2019-12-23 13:55] LABS: OCCULT BLOOD STOOL NEGATIVE (Neg)
[2019-12-23 20:00] VITALS: BP 159/88
[2019-12-23] MEDS: atorvastatin 20mg tablet PO SCH (20:46)
[2019-12-23] MEDS: temazepam 15mg capsule PO PRN (23:01)
[2019-12-24] VITALS: BP 167/84
--- NOTE | 2019-12-24 06:00 | NUR ---
Reported of to Maurice WALSH
[2019-12-24 07:00] VITALS: BP 208/110
--- NOTE | 2019-12-24 07:11 | NUR ---
Spoke with Cate Macdonald regarding utilization of a stroke nurse to assist in completing the NIH stroke scale, awaiting response.
[2019-12-24] MEDS: ezetimibe 10mg tablet PO SCH (07:42)
[2019-12-24] MEDS: metoprolol tartrate 50mg tablet PO SCH (07:43)
[2019-12-24] MEDS: pantoprazole 40mg Tablet.DR PO SCH (07:43)
[2019-12-24] MEDS: losartan 25mg tablet PO SCH (07:43)
[2019-12-24] MEDS: aspirin 81mg tablet.DR PO SCH (07:43)
[2019-12-24] MEDS: apixaban 5mg tablet PO SCH (07:43)
[2019-12-24] MEDS: cloNIDine 0.1 mg tablet PO SCH ×2 (07:43→13:40)
--- NOTE | 2019-12-24 08:13 | NUR ---
Spoke with Ortho charge NICO Portillo stated to keep up with neurochecks and vitals and we will not fall out of compliance with NIHSS.
[2019-12-24 09:30] LABS: BASOPHILS # (AUTO) 0.1 X10'3 (0-0.2); BASOPHILS % (AUTO) 1.6 % (0-1); EOSINOPHILS # (AUTO) 0.1 X10'3 (0-0.9); HEMATOCRIT 28.5 % (42.0-52.0); HEMOGLOBIN 8.4 g/dl (14.0-17.9); LYMPHOCYTES # (AUTO) 1.3 X10'3 (1.1-4.8); LYMPHOCYTES % (AUTO) 20.8 % (21-51); MEAN CORPUSCULAR HEMOGLOBIN 17.9 PG (27.0-31.0); MEAN CORPUSCULAR HGB CONC 29.4 g/dL (33.0-36.5); MEAN CORPUSCULAR VOLUME 60.9 FL (78-98); MEAN PLATELET VOLUME 8.5 FL (7.4-10.4); MONOCYTES # (AUTO) 0.5 X10'3 (0-0.9); MONOCYTES % (AUTO) 7.6 % (2-12); NEUTROPHILS # (AUTO) 4.3 X10'3 (1.8-7.7); PLATELET COUNT 257 X10'3 (140-440); RED BLOOD COUNT 4.67 X10'6 (4.70-6.10); RED CELL DISTRIBUTION WIDTH 19.8 % (11.5-14.5); WHITE BLOOD COUNT 6.4 X10'3 (4.5-11.0)
[2019-12-24 09:38] LABS: ALBUMIN 3.5 G/DL (3.4-5.0); ANION GAP 10 (8-16); BLOOD UREA NITROGEN 32 MG/DL (7-18); BUN/CREATININE RATIO 16.1 (5.4-32.0); CALCIUM 8.8 MG/DL (8.5-10.1); CHLORIDE 102 MMOL/L (99-107); CREATININE 1.99 MG/DL (0.60-1.10); GLUCOSE 178 MG/DL (70-104); POTASSIUM 3.6 MMOL/L (3.5-5.1); SODIUM 136 MMOL/L (135-145); TOTAL CARBON DIOXIDE 24.5 MMOL/L (24-32); eGFR 35 ML/MIN
[2019-12-24 10:16] LABS: ANISOCYTOSIS 2+; MICROCYTOSIS 2+; PLATELET ESTIMATE NORMAL
[2019-12-24 10:17] LABS: ELLIPTOCYTES FEW; HYPOCHROMASIA 1+
[2019-12-24 10:18] LABS: LARGE PLATELETS FEW
[2019-12-24 12:00] VITALS: BP 165/95
--- NOTE | 2019-12-24 14:30 | NUR ---
Patient was hypertensive with morning vitals, after giving scheduled bp meds blood pressure reduced to 160's.
--- NOTE | 2019-12-24 14:35 | NUR ---
Patient discharged to [facility] into the care of Sally cargo staff member. Patient left with all belongings, patient IV removed. Patient not on tele. Report called to NICO Parr prior to discharge at 1410, a copy of medications last given time included in patient packet. Addendum: 12/24/19 at 1829 by Maurice Dempsey RN patient discharged with stroke information packet.
== END 2019-12-24 14:43 | DRG 45 ==
LOC: ER 20:33 → ED HOLD 22:57 → UNDOADMIN 23:04 → ED HOLD 23:04 → SUR 3N 12-18 00:10 → ED HOLD 12-18 00:10
PROVIDERS: ADMIT Internal Medicine; ATTEND Family Medicine
PROC: BW281ZZ Computerized Tomography (CT Scan) of Head using Low Osmolar Contrast (ICD-10-PCS; principal; 2019-12-17)
PROC: BW291ZZ Computerized Tomography (CT Scan) of Head and Neck using Low Osmolar Contrast (ICD-10-PCS; 2019-12-17)
DX: I63.40 Cerebral infarction due to embolism of unspecified cerebral artery (principal); G81.94 Hemiplegia, unspecified affecting left nondominant side; N18.3 Chronic kidney disease, stage 3 (moderate); I48.0 Paroxysmal atrial fibrillation; D50.9 Iron deficiency anemia, unspecified; R47.01 Aphasia; E78.5 Hyperlipidemia, unspecified; E87.6 Hypokalemia; I25.10 Atherosclerotic heart disease of native coronary artery without angina pectoris; I12.9 Hypertensive chronic kidney disease with stage 1 through stage 4 chronic kidney disease, or unspecified chronic kidney disease; R47.1 Dysarthria and anarthria; J44.9 Chronic obstructive pulmonary disease, unspecified; Z87.891 Personal history of nicotine dependence; Z79.01 Long term (current) use of anticoagulants; Z79.82 Long term (current) use of aspirin; Z79.899 Other long term (current) drug therapy; Z82.3 Family history of stroke; Z95.5 Presence of coronary angioplasty implant and graft
CPT/HCPCS: 36415; 70450; 70496; 70498; 70551; 71045; 80048; 80053; 80061; 82272; 83036; 83735; 84132; 84484; 85025; 85610; 85730; 87081; 92508; 92616; 93005; 97110; 97112; 97116; 97161; 97530; 97535; 99285; G0378; J0360; J2060; J3490; J7030; Q9967

== ENCOUNTER 2021-04-26 10:39 | Inpatient (IN) | payer MEDICAID ==
[~2021-04-26] VITALS: Ht 167.6 cm; Wt 81.8 kg
[~2021-04-26 10:39] MED LIST changes: +AMLO10TA13 PO; -ASPI-611 PO; +HYDR25TA4 PO; -METO50TA16 PO; +NITR0.4T48 SL; -NITR0.4T51 SL; -OMEP-84 PO; +PANT40TA54 PO; +SOTA80TA PO; +TRAZ150T78 PO
[2021-04-26 11:38] LABS: BASOPHILS % (AUTO) 0.5 % (0-1); EOSINOPHILS # (AUTO) 0.1 X10'3 (0-0.9); HEMOGLOBIN 14.9 g/dl (14.0-17.9); LYMPHOCYTES # (AUTO) 0.6 X10'3 (1.1-4.8); LYMPHOCYTES % (AUTO) 6.9 % (21-51); MEAN CORPUSCULAR HEMOGLOBIN 31.3 PG (27.0-31.0); MEAN CORPUSCULAR HGB CONC 34.7 g/dL (33.0-36.5); MEAN CORPUSCULAR VOLUME 90.1 FL (78-98); MEAN PLATELET VOLUME 8.4 FL (7.4-10.4); MONOCYTES # (AUTO) 0.8 X10'3 (0-0.9); MONOCYTES % (AUTO) 8.7 % (2-12); NEUTROPHILS # (AUTO) 7.6 X10'3 (1.8-7.7); NEUTROPHILS % (AUTO) 82.9 % (42-75); PLATELET COUNT 368 X10'3 (140-440); RED BLOOD COUNT 4.77 X10'6 (4.70-6.10); RED CELL DISTRIBUTION WIDTH 14.9 % (11.5-14.5); WHITE BLOOD COUNT 9.1 X10'3 (4.5-11.0)
[2021-04-26 11:48] LABS: D-DIMER 0.27 MG/L FEU (0-0.50)
[2021-04-26 11:51] LABS: ALANINE AMINOTRANSFERASE 31 U/L (12-78); ALBUMIN 3.4 G/DL (3.4-5.0); ALBUMIN/GLOBULIN RATIO 0.5 (1.1-1.5); ALKALINE PHOSPHATASE 78 IU/L (46-116); ANION GAP 19 (8-16); ASPARTATE AMINO TRANSFERASE 24 U/L (10-37); BILIRUBIN,TOTAL 1.2 MG/DL (0.1-1.0); CALCIUM 10.1 MG/DL (8.5-10.1); CHLORIDE 109 MMOL/L (99-107); GLUCOSE 102 MG/DL (70-104); POTASSIUM 4.5 MMOL/L (3.5-5.1); SODIUM 145 MMOL/L (135-145); TOTAL CARBON DIOXIDE 17.5 MMOL/L (24-32); TOTAL PROTEIN 9.9 G/DL (6.4-8.2); eGFR 13 ML/MIN
[2021-04-26 12:00] LABS: BLOOD UREA NITROGEN 195 MG/DL (7-18); BUN/CREATININE RATIO 42.4 (5.4-32.0); C-REACTIVE PROTEIN 2.38 MG/DL (0.0-0.5)
[2021-04-26] MEDS ORDERED: dexamethasone 4mg tablet PO ONE (14:05)
[2021-04-26] MEDS ORDERED: DEXAMETHASONE 6 MG TABLET PO SCH (14:10)
[2021-04-26] MEDS ORDERED: DEXAMETHASONE 6 MG TABLET PO ONE (14:10)
--- NOTE | 2021-04-26 14:33 | NUR ---
SIG OTHER, KIANNA, CONTACT [phone] CALLED IN FOR CONDITION REPORT
[2021-04-26] MEDS ORDERED: normal saline 1000ML IV soln IV ONE (15:05)
--- NOTE | 2021-04-26 16:00 | NUR ---
DR CARDONA AT BEDSIDE VERBAL ORDER FOR ALLEN CATHETER.
[2021-04-26] MEDS ORDERED: morphine 2 MG/ML inj. syringe IV PRN ×2 (16:25)
[2021-04-26] MEDS ORDERED: potassium Cl 40MEQ/1/2NS 520ml 520 ML IV PRN ×2 (16:25)
[2021-04-26] MEDS ORDERED: magnesium 4gm in 100ml NS 100 ML IV PRN (16:25)
[2021-04-26] MEDS ORDERED: magnesium 2GM in 50ml NS 50 ML IV PRN (16:25)
[2021-04-26] MEDS ORDERED: bisacodyl 10mg suppository rectal RC PRN (16:25)
[2021-04-26] MEDS ORDERED: magnesium hydroxide 30ml (MOM) UD suspension PO PRN (16:25)
[2021-04-26] MEDS ORDERED: acetaminophen 325mg tablet PO PRN (16:25)
[2021-04-26] MEDS ORDERED: magnesium Cl slow-release 64mg tablet PO PRN (16:25)
[2021-04-26] MEDS ORDERED: acetaminophen 650mg rectal suppository RC PRN (16:25)
[2021-04-26] MEDS ORDERED: potassium Cl 20 mEq SR tablet PO PRN ×2 (16:25)
[2021-04-26] MEDS ORDERED: ondansetron/PF 4mg/2ml inj IV PRN (16:25)
[2021-04-26] MEDS ORDERED: LIDOcaine 2% 10ml TOPICAL JELLY (Urojet) TP ONE (16:30)
[2021-04-26 16:35] LABS: CLARITY,URINE SLIGHTLY CLOUDY (Clear); COLOR,URINE STRAW (Yellow); UA COLLECTION TYPE FOLEY CATH
[2021-04-26 16:36] LABS: GLUCOSE, URINE NEGATIVE (Neg); KETONES,URINE NEGATIVE (Neg); LEUKOCYTE ESTERASE ,URINE NEGATIVE (Neg); NITRITES, URINE NEGATIVE (Neg); OCCULT BLOOD,URINE NEGATIVE (Neg); PROTEIN,URINE TRACE mg/dl (Neg); UROBILINOGEN,URINE 0.2 E.U/dL (0.2-1.0)
[2021-04-26 16:43] LABS: MUCUS STRANDS FEW /LPF (Neg); SQUAMOUS EPITHELIAL CELL,UR FEW /LPF (FEW); TRANSITIONAL EPI CELLS,URINE FEW /HPF
[2021-04-26 16:44] LABS: COARSE GRANULAR CAST 0-3 /LPF (NEGATIVE); HYALINE CASTS 0-3 /LPF (NEGATIVE)
[2021-04-26 16:45] LABS: BACTERIA,URINE NONE SEEN /HPF (Neg); RBC,URINE 0-2 /HPF (0-2); RENAL CELLS, URINE FEW /HPF; WBC,URINE 0-4 /HPF (0-4)
[2021-04-26 16:46] LABS: AMORPHOUS URATES 1+
[2021-04-26] MEDS: normal saline 1000ml 1,000 ML IV SCH ×2 (17:00→23:05)
[2021-04-26] MEDS: K and/or MAG REPLACEMENT MC SCH (19:37)
--- NOTE | 2021-04-26 20:00 | NUR ---
PT AGITATED, C/O PAIN AND SOB. SPO2 96% PLACED PT ON OXYGEN NC 2L SPO2 97%. MEDICATED WITH MORPHINE 1MG. PT NOW RESTING COMFORTABLEY, IN POSITION OF COMFORT, BED IN LOW POSITION, SITTER AT BEDSIDE.
[2021-04-26] MEDS: docusate sod 100mg capsule PO SCH (20:03)
[2021-04-26] MEDS: apixaban 5mg tablet PO SCH (20:04)
[2021-04-26] MEDS: atorvastatin 20mg tablet PO SCH (20:04)
[2021-04-26] MEDS: dexamethasone 4mg/ml inj IV SCH (20:04)
[2021-04-26 23:00] VITALS: BP 132/87
[2021-04-27 02:00] VITALS: BP 139/81
[2021-04-27] MEDS: normal saline 1000ml 1,000 ML IV SCH ×2 (05:07→12:54)
[2021-04-27] MEDS: ezetimibe 10mg tablet PO SCH (07:30)
[2021-04-27] MEDS: apixaban 5mg tablet PO SCH ×2 (07:30→19:54)
[2021-04-27] MEDS: amLODIPine 5mg tablet PO SCH (07:30)
[2021-04-27] MEDS: dexamethasone 4mg/ml inj IV SCH ×2 (07:31→19:55)
[2021-04-27] MEDS: K and/or MAG REPLACEMENT MC SCH ×2 (08:00→20:00)
[2021-04-27] MEDS: docusate sod 100mg capsule PO SCH ×2 (08:00→19:54)
[2021-04-27] MEDS: sotalol 80mg tablet PO SCH (08:15)
[2021-04-27 08:34] LABS: BASOPHILS % (AUTO) 0.4 % (0-1); EOSINOPHILS % (AUTO) 0 % (0-6); HEMATOCRIT 37.8 % (42.0-52.0); HEMOGLOBIN 13.1 g/dl (14.0-17.9); LYMPHOCYTES # (AUTO) 0.4 X10'3 (1.1-4.8); LYMPHOCYTES % (AUTO) 7.6 % (21-51); MEAN CORPUSCULAR HEMOGLOBIN 30.8 PG (27.0-31.0); MEAN CORPUSCULAR HGB CONC 34.7 g/dL (33.0-36.5); MEAN CORPUSCULAR VOLUME 88.7 FL (78-98); MEAN PLATELET VOLUME 8.4 FL (7.4-10.4); MONOCYTES # (AUTO) 0.2 X10'3 (0-0.9); MONOCYTES % (AUTO) 2.9 % (2-12); NEUTROPHILS # (AUTO) 5.2 X10'3 (1.8-7.7); NEUTROPHILS % (AUTO) 89.1 % (42-75); PLATELET COUNT 341 X10'3 (140-440); RED BLOOD COUNT 4.26 X10'6 (4.70-6.10); RED CELL DISTRIBUTION WIDTH 14.5 % (11.5-14.5); WHITE BLOOD COUNT 5.8 X10'3 (4.5-11.0)
[2021-04-27 09:01] LABS: ALANINE AMINOTRANSFERASE 32 U/L (12-78); ALBUMIN 3.1 G/DL (3.4-5.0); ALBUMIN/GLOBULIN RATIO 0.5 (1.1-1.5); ALKALINE PHOSPHATASE 72 IU/L (46-116); ANION GAP 17 (8-16); ASPARTATE AMINO TRANSFERASE 28 U/L (10-37); BILIRUBIN,TOTAL 0.9 MG/DL (0.1-1.0); BLOOD UREA NITROGEN 141 MG/DL (7-18); BUN/CREATININE RATIO 50.7 (5.4-32.0); C-REACTIVE PROTEIN 1.47 MG/DL (0.0-0.5); CALCIUM 9.2 MG/DL (8.5-10.1); CHLORIDE 115 MMOL/L (99-107); CHOLESTEROL 101 MG/DL (0-200); CREATININE 2.78 MG/DL (0.60-1.10); GLUCOSE 153 MG/DL (70-104); HDL CHOLESTEROL 34 MG/DL (35-60); LACTATE DEHYDROGENASE 206 U/L (85-227); LDL CHOLESTEROL 52 MG/DL (50-100); MAGNESIUM 2.3 MG/DL (1.5-2.4); PHOSPHORUS 5.4 MG/DL (2.3-4.5); POTASSIUM 4.7 MMOL/L (3.5-5.1); SODIUM 148 MMOL/L (135-145); TOTAL CARBON DIOXIDE 15.9 MMOL/L (24-32); TOTAL PROTEIN 9.1 G/DL (6.4-8.2); TRIGLYCERIDES 120 MG/DL (20-135); eGFR 23 ML/MIN
[2021-04-27 10:00] VITALS: BP 138/92
[2021-04-27] MEDS: loratadine 10mg tablet PO SCH (10:40)
[2021-04-27] MEDS: losartan 50mg tablet PO SCH (10:41)
--- NOTE | 2021-04-27 13:45 | NUR ---
Malnutrition Consult: Pt admit DX COVID-19 and MARILU per EMR. PO 50% first renal/heart healthy meal this AM further PO pending. Pt has rigid strength though no edema/wounds and appears WD/WN per ER note. Pt has no scaled wt this admit, no scaled wt hx, and currently AOx2 confused as well as unsure if wt loss per EMR. 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 Currently insufficient malnutrition criteria. Will monitor for PO trends and nutrition intervention needs this admit. Addendum: 04/27/21 at [address] Amended: Links added.
--- NOTE | 2021-04-27 17:52 | NUR ---
Pt has been getting up from bed and chair unassisted. Education given on the importance using call light for assistance to get up. VS stable. Pt 98% RA. Right sided weakness. Pt denies pain at this time. IV removed when pt getting up unassisted. This nurse attempted x 1. Reddened areas in sides of groin folds and scrotum. Nurse applied calazime cream to areas and patient stated that it helped a lot. Nurse requested sitter for pt due to pt being unsafe. Meds tolerated well this shift. Pt currently sitting up in chair in room. Will continue to monitor.
[2021-04-27 18:00] VITALS: BP 136/68
[2021-04-27] MEDS: atorvastatin 20mg tablet PO SCH (19:54)
[2021-04-27] MEDS: HYDROcodone/acetaminophen 5mg/325mg tablet PO PRN (19:55)
[2021-04-27] MEDS: sodium bicarbonate (8.4%) inj. 50 MEQ in dextrose 5%-water 1,000 ML IV SCH (19:57)
[2021-04-27 22:00] VITALS: BP 132/87
[2021-04-28 02:00] VITALS: BP 137/69
[2021-04-28] MEDS: HYDROcodone/acetaminophen 5mg/325mg tablet PO PRN ×2 (02:49→10:19)
[2021-04-28] MEDS: sodium bicarbonate (8.4%) inj. 50 MEQ in dextrose 5%-water 1,000 ML IV SCH ×2 (05:18→14:45)
[2021-04-28] MEDS: K and/or MAG REPLACEMENT MC SCH ×2 (08:00→20:00)
[2021-04-28 08:34] LABS: BASOPHILS % (AUTO) 0.1 % (0-1); EOSINOPHILS % (AUTO) 0 % (0-6); HEMATOCRIT 38.3 % (42.0-52.0); HEMOGLOBIN 12.9 g/dl (14.0-17.9); LYMPHOCYTES # (AUTO) 0.6 X10'3 (1.1-4.8); LYMPHOCYTES % (AUTO) 4.9 % (21-51); MEAN CORPUSCULAR HEMOGLOBIN 30.6 PG (27.0-31.0); MEAN CORPUSCULAR HGB CONC 33.7 g/dL (33.0-36.5); MEAN CORPUSCULAR VOLUME 90.8 FL (78-98); MEAN PLATELET VOLUME 8.9 FL (7.4-10.4); MONOCYTES # (AUTO) 1.1 X10'3 (0-0.9); NEUTROPHILS # (AUTO) 10.5 X10'3 (1.8-7.7); PLATELET COUNT 325 X10'3 (140-440); RED BLOOD COUNT 4.22 X10'6 (4.70-6.10); RED CELL DISTRIBUTION WIDTH 14.8 % (11.5-14.5); WHITE BLOOD COUNT 12.2 X10'3 (4.5-11.0)
[2021-04-28 08:49] LABS: ALANINE AMINOTRANSFERASE 31 U/L (12-78); ALBUMIN/GLOBULIN RATIO 0.6 (1.1-1.5); ALKALINE PHOSPHATASE 64 IU/L (46-116); ANION GAP 15 (8-16); ASPARTATE AMINO TRANSFERASE 26 U/L (10-37); BILIRUBIN,TOTAL 0.6 MG/DL (0.1-1.0); BLOOD UREA NITROGEN 105 MG/DL (7-18); BUN/CREATININE RATIO 49.3 (5.4-32.0); C-REACTIVE PROTEIN 0.66 MG/DL (0.0-0.5); CALCIUM 9.6 MG/DL (8.5-10.1); CHLORIDE 113 MMOL/L (99-107); CREATININE 2.13 MG/DL (0.60-1.10); GLUCOSE 159 MG/DL (70-104); LACTATE DEHYDROGENASE 164 U/L (85-227); MAGNESIUM 2.2 MG/DL (1.5-2.4); PHOSPHORUS 4.1 MG/DL (2.3-4.5); POTASSIUM 4.1 MMOL/L (3.5-5.1); SODIUM 147 MMOL/L (135-145); TOTAL CARBON DIOXIDE 18.6 MMOL/L (24-32); TOTAL PROTEIN 8.3 G/DL (6.4-8.2); eGFR 32 ML/MIN
[2021-04-28 09:22] LABS: D-DIMER 0.33 MG/L FEU (0-0.50)
[2021-04-28 10:00] VITALS: BP 147/88
[2021-04-28] MEDS: apixaban 5mg tablet PO SCH ×2 (10:18→20:02)
[2021-04-28] MEDS: ezetimibe 10mg tablet PO SCH (10:18)
[2021-04-28] MEDS: loratadine 10mg tablet PO SCH (10:18)
[2021-04-28] MEDS: dexamethasone 4mg/ml inj IV SCH ×2 (10:18→20:01)
[2021-04-28] MEDS: docusate sod 100mg capsule PO SCH ×2 (10:18→20:01)
[2021-04-28] MEDS: losartan 50mg tablet PO SCH (10:32)
[2021-04-28] MEDS: sotalol 80mg tablet PO SCH (10:32)
[2021-04-28] MEDS: amLODIPine 5mg tablet PO SCH (10:32)
[2021-04-28] MEDS ORDERED: ondansetron 4mg rapidly disintigrating tab PO PRN (11:45)
[2021-04-28 14:00] VITALS: BP 130/82
[2021-04-28] MEDS: HYDROcodone/acetaminophen 10/325mg tab PO PRN ×2 (14:46→20:10)
[2021-04-28 18:00] VITALS: BP 155/91
[2021-04-28] MEDS: nystatin 15 GM powder TP SCH (18:20)
[2021-04-28] MEDS: atorvastatin 20mg tablet PO SCH (20:01)
[2021-04-28 22:00] VITALS: BP 143/85
[2021-04-29] MEDS: sodium bicarbonate (8.4%) inj. 50 MEQ in dextrose 5%-water 1,000 ML IV SCH (01:18)
[2021-04-29 02:00] VITALS: BP 128/92
--- NOTE | 2021-04-29 02:32 | NUR ---
circuit board repair technician called. Reported that QT interval had been trending 0.39-0.42 for past few days. Now is consistently at 0.60. Not sure what would have caused this?
[2021-04-29] MEDS: HYDROcodone/acetaminophen 10/325mg tab PO PRN ×2 (03:03→23:27)
[2021-04-29 06:00] VITALS: BP 147/88
[2021-04-29] MEDS: dexamethasone 4mg/ml inj IV SCH ×2 (07:09→23:22)
[2021-04-29] MEDS: loratadine 10mg tablet PO SCH (07:10)
[2021-04-29] MEDS: ezetimibe 10mg tablet PO SCH (07:10)
[2021-04-29] MEDS: losartan 50mg tablet PO SCH (07:10)
[2021-04-29] MEDS: amLODIPine 5mg tablet PO SCH (07:11)
[2021-04-29] MEDS: sotalol 80mg tablet PO SCH (07:11)
[2021-04-29] MEDS: apixaban 5mg tablet PO SCH ×2 (07:11→23:22)
[2021-04-29] MEDS: docusate sod 100mg capsule PO SCH ×2 (07:11→23:21)
[2021-04-29] MEDS: K and/or MAG REPLACEMENT MC SCH ×2 (07:32→23:18)
[2021-04-29] MEDS: nystatin 15 GM powder TP SCH (07:33)
[2021-04-29 08:32] LABS: BASOPHILS % (AUTO) 0.1 % (0-1); EOSINOPHILS % (AUTO) 0 % (0-6); HEMATOCRIT 39.3 % (42.0-52.0); HEMOGLOBIN 13.4 g/dl (14.0-17.9); LYMPHOCYTES # (AUTO) 0.7 X10'3 (1.1-4.8); LYMPHOCYTES % (AUTO) 5.1 % (21-51); MEAN CORPUSCULAR HEMOGLOBIN 30.3 PG (27.0-31.0); MEAN CORPUSCULAR HGB CONC 34.1 g/dL (33.0-36.5); MEAN PLATELET VOLUME 9.2 FL (7.4-10.4); MONOCYTES # (AUTO) 1.3 X10'3 (0-0.9); MONOCYTES % (AUTO) 9.5 % (2-12); NEUTROPHILS # (AUTO) 11.8 X10'3 (1.8-7.7); NEUTROPHILS % (AUTO) 85.3 % (42-75); PLATELET COUNT 301 X10'3 (140-440); RED BLOOD COUNT 4.42 X10'6 (4.70-6.10); RED CELL DISTRIBUTION WIDTH 14.3 % (11.5-14.5); WHITE BLOOD COUNT 13.8 X10'3 (4.5-11.0)
--- NOTE | 2021-04-29 08:37 | NUR ---
PAGER ID: [phone] MESSAGE: Shea Bahman regarding 400 Pearnovember. Pt was on RA, O2 sat 85. Placed on O2 via NC, increased to 5L and pt still only 88%. Do you want a chest xray and RT Eval & treat?
[2021-04-29 08:46] LABS: ALANINE AMINOTRANSFERASE 30 U/L (12-78); ALBUMIN 2.8 G/DL (3.4-5.0); ALBUMIN/GLOBULIN RATIO 0.5 (1.1-1.5); ALKALINE PHOSPHATASE 66 IU/L (46-116); ANION GAP 14 (8-16); ASPARTATE AMINO TRANSFERASE 19 U/L (10-37); BILIRUBIN,TOTAL 0.7 MG/DL (0.1-1.0); BLOOD UREA NITROGEN 78 MG/DL (7-18); BUN/CREATININE RATIO 44.3 (5.4-32.0); CALCIUM 9.2 MG/DL (8.5-10.1); CHLORIDE 113 MMOL/L (99-107); CREATININE 1.76 MG/DL (0.60-1.10); GLUCOSE 196 MG/DL (70-104); LACTATE DEHYDROGENASE 257 U/L (85-227); PHOSPHORUS 3.6 MG/DL (2.3-4.5); SODIUM 151 MMOL/L (135-145); TOTAL CARBON DIOXIDE 24.2 MMOL/L (24-32); TOTAL PROTEIN 8.2 G/DL (6.4-8.2); eGFR 40 ML/MIN
[2021-04-29 09:32] LABS: D-DIMER 0.27 MG/L FEU (0-0.50)
--- NOTE | 2021-04-29 09:35 | NUR ---
PAGER ID: [phone] MESSAGE: Shea Bahman - regarding Pearle November in 4001A. Increased O2 requirement, now on 6L NC. Pt previously on room air.
[2021-04-29 10:00] VITALS: BP 145/93
--- NOTE | 2021-04-29 12:57 | NUR ---
PAGER ID: [phone] MESSAGE: Shea [phone] regarding Pearle May in 4009A. Pt aspirated on jello. With his increased white count and O2 requirement, should we get a repeat swallow study?
[2021-04-29] MEDS: sodium chloride 0.45% 1,000 ML IV SCH ×2 (13:04→23:28)
[2021-04-29 14:00] VITALS: BP 145/93
[2021-04-29 14:20] VITALS: BP 147/88
[2021-04-29 18:03] VITALS: BP 156/98
--- NOTE | 2021-04-29 21:15 | NUR ---
Patient received at 1930 Patient alert. Patient saturation 81-85%. adjustment made to o2 via nasal cannula. Respiratory notified. Patient seen by and Patient seen by respiratory. Adjustments made to 02. Patient now has order for highflow if he needs it.
[2021-04-29] MEDS: atorvastatin 20mg tablet PO SCH (23:22)
[2021-04-30] VITALS (8 sets, daily range): BP systolic 147–175; BP diastolic 78–110
[2021-04-30] MEDS ORDERED: losartan 50mg tablet PO ONE (02:30)
--- NOTE | 2021-04-30 02:34 | NUR ---
Patient has an elevated BP of 171/87, 115. made aware. received order to administer BP med view emar.
[2021-04-30] MEDS: K and/or MAG REPLACEMENT MC SCH ×2 (08:00→20:00)
[2021-04-30] MEDS: ezetimibe 10mg tablet PO SCH (08:02)
[2021-04-30] MEDS: docusate sod 100mg capsule PO SCH ×2 (08:02→20:31)
[2021-04-30] MEDS: apixaban 5mg tablet PO SCH ×2 (08:02→20:31)
[2021-04-30] MEDS: loratadine 10mg tablet PO SCH (08:03)
[2021-04-30] MEDS: sotalol 80mg tablet PO SCH (08:03)
[2021-04-30] MEDS: dexamethasone 4mg/ml inj IV SCH ×2 (08:04→20:31)
[2021-04-30] MEDS: amLODIPine 5mg tablet PO SCH (08:04)
[2021-04-30 08:46] LABS: BASOPHILS % (AUTO) 0 % (0-1); EOSINOPHILS % (AUTO) 0 % (0-6); HEMATOCRIT 41.7 % (42.0-52.0); HEMOGLOBIN 13.6 g/dl (14.0-17.9); LYMPHOCYTES # (AUTO) 0.5 X10'3 (1.1-4.8); LYMPHOCYTES % (AUTO) 2.9 % (21-51); MEAN CORPUSCULAR HEMOGLOBIN 29.8 PG (27.0-31.0); MEAN CORPUSCULAR HGB CONC 32.6 g/dL (33.0-36.5); MEAN CORPUSCULAR VOLUME 91.3 FL (78-98); MEAN PLATELET VOLUME 9.8 FL (7.4-10.4); MONOCYTES # (AUTO) 1.2 X10'3 (0-0.9); MONOCYTES % (AUTO) 6.6 % (2-12); NEUTROPHILS # (AUTO) 15.9 X10'3 (1.8-7.7); NEUTROPHILS % (AUTO) 90.5 % (42-75); PLATELET COUNT 317 X10'3 (140-440); RED BLOOD COUNT 4.57 X10'6 (4.70-6.10); RED CELL DISTRIBUTION WIDTH 14.9 % (11.5-14.5); WHITE BLOOD COUNT 17.6 X10'3 (4.5-11.0)
[2021-04-30 09:05] LABS: ALANINE AMINOTRANSFERASE 31 U/L (12-78); ALBUMIN 2.7 G/DL (3.4-5.0); ALBUMIN/GLOBULIN RATIO 0.5 (1.1-1.5); ALKALINE PHOSPHATASE 73 IU/L (46-116); ANION GAP 12 (8-16); ASPARTATE AMINO TRANSFERASE 18 U/L (10-37); BLOOD UREA NITROGEN 67 MG/DL (7-18); BUN/CREATININE RATIO 40.4 (5.4-32.0); CHLORIDE 111 MMOL/L (99-107); CREATININE 1.66 MG/DL (0.60-1.10); GLUCOSE 181 MG/DL (70-104); LACTATE DEHYDROGENASE 184 U/L (85-227); MAGNESIUM 1.7 MG/DL (1.5-2.4); PHOSPHORUS 3.8 MG/DL (2.3-4.5); SODIUM 147 MMOL/L (135-145); TOTAL CARBON DIOXIDE 23.8 MMOL/L (24-32); TOTAL PROTEIN 8.3 G/DL (6.4-8.2); eGFR 42 ML/MIN
[2021-04-30 09:17] LABS: D-DIMER 0.25 MG/L FEU (0-0.50)
[2021-04-30] MEDS ORDERED: REMDESIVIR INJ 200 MG in normal saline 100ml IV soln 60 ML IV ONE ×2 (09:25→10:40)
[2021-04-30] MEDS: sodium chloride 0.45% 1,000 ML IV SCH ×2 (09:28→21:02)
[2021-04-30] MEDS: nystatin 15 GM powder TP SCH (09:30)
[2021-04-30] MEDS: losartan 50mg tablet PO SCH (17:44)
[2021-04-30] MEDS: HYDROcodone/acetaminophen 10/325mg tab PO PRN (19:20)
[2021-04-30] MEDS: atorvastatin 20mg tablet PO SCH (20:31)
[2021-05-01] MEDS: piperacillin/tazo 3.375gm/50ml 50 ML IV SCH ×4 (01:27→23:56)
[2021-05-01 02:00] VITALS: BP 166/91
[2021-05-01] MEDS: HYDROcodone/acetaminophen 10/325mg tab PO PRN (04:19)
[2021-05-01 06:00] VITALS: BP 180/114
--- NOTE | 2021-05-01 07:01 | NUR ---
Patient in room ORTHO 4009. I have received report from NICO Iverson and had the opportunity to ask questions and assume patient care.
[2021-05-01] MEDS: dexamethasone 4mg/ml inj IV SCH ×2 (07:51→20:38)
[2021-05-01] MEDS: loratadine 10mg tablet PO SCH (07:51)
[2021-05-01] MEDS: REMDESIVIR INJ 100 MG in normal saline 100ml IV soln 80 ML IV SCH (07:51)
[2021-05-01] MEDS: docusate sod 100mg capsule PO SCH ×2 (07:51→20:37)
[2021-05-01] MEDS: sotalol 80mg tablet PO SCH (07:51)
[2021-05-01] MEDS: apixaban 5mg tablet PO SCH ×2 (07:51→20:37)
[2021-05-01] MEDS: amLODIPine 5mg tablet PO SCH (07:51)
[2021-05-01] MEDS: ezetimibe 10mg tablet PO SCH (07:52)
[2021-05-01] MEDS: losartan 50mg tablet PO SCH (07:52)
[2021-05-01] MEDS ORDERED: REMDESIVIR INJ 100 MG in normal saline 100ml IV soln 80 ML IV SCH (08:00)
[2021-05-01] MEDS: K and/or MAG REPLACEMENT MC SCH ×2 (08:00→20:00)
[2021-05-01] MEDS: nystatin 15 GM powder TP SCH (08:05)
[2021-05-01 08:36] LABS: BASOPHILS % (AUTO) 0.1 % (0-1); EOSINOPHILS % (AUTO) 0 % (0-6); HEMATOCRIT 39.3 % (42.0-52.0); LYMPHOCYTES # (AUTO) 0.9 X10'3 (1.1-4.8); LYMPHOCYTES % (AUTO) 5.1 % (21-51); MEAN CORPUSCULAR HEMOGLOBIN 29.9 PG (27.0-31.0); MEAN CORPUSCULAR HGB CONC 33.1 g/dL (33.0-36.5); MEAN CORPUSCULAR VOLUME 90.4 FL (78-98); MEAN PLATELET VOLUME 10.3 FL (7.4-10.4); MONOCYTES % (AUTO) 11.3 % (2-12); NEUTROPHILS % (AUTO) 83.5 % (42-75); PLATELET COUNT 282 X10'3 (140-440); RED BLOOD COUNT 4.35 X10'6 (4.70-6.10); RED CELL DISTRIBUTION WIDTH 14.5 % (11.5-14.5); WHITE BLOOD COUNT 17.9 X10'3 (4.5-11.0)
[2021-05-01 09:21] LABS: ALANINE AMINOTRANSFERASE 28 U/L (12-78); ALBUMIN 2.6 G/DL (3.4-5.0); ALBUMIN/GLOBULIN RATIO 0.5 (1.1-1.5); ALKALINE PHOSPHATASE 73 IU/L (46-116); ANION GAP 15 (8-16); ASPARTATE AMINO TRANSFERASE 20 U/L (10-37); BILIRUBIN,TOTAL 0.8 MG/DL (0.1-1.0); BLOOD UREA NITROGEN 73 MG/DL (7-18); BUN/CREATININE RATIO 46.8 (5.4-32.0); C-REACTIVE PROTEIN 5.93 MG/DL (0.0-0.5); CALCIUM 9.2 MG/DL (8.5-10.1); CHLORIDE 110 MMOL/L (99-107); CREATININE 1.56 MG/DL (0.60-1.10); GLUCOSE 168 MG/DL (70-104); LACTATE DEHYDROGENASE 208 U/L (85-227); MAGNESIUM 2.1 MG/DL (1.5-2.4); PHOSPHORUS 4.3 MG/DL (2.3-4.5); POTASSIUM 3.8 MMOL/L (3.5-5.1); SODIUM 146 MMOL/L (135-145); TOTAL CARBON DIOXIDE 20.8 MMOL/L (24-32); TOTAL PROTEIN 8.1 G/DL (6.4-8.2); eGFR 45 ML/MIN
[2021-05-01 10:00] VITALS: BP 172/94
--- NOTE | 2021-05-01 11:31 | NUR ---
Initial: Pt admit for acute encephalopathy, COVID PNA, and MARILU. Per nephrology note MARILU improving. Pt A/O x 2 per physical assessment. S/p BSS with ST initially recommending pureed food with nectar thick liquids however at f/u BSS 04/30 ST further modified liquids to honey thick consistency. PO intake throughout LOS fluctuates, initially with average 50-75% PO intake however more recently averaging 25% PO intake not meeting estimated nutrient needs. Recommend honey thickened Ensure Enlive TID to optimize PO intake. ONS to be sent pending physician approval in EMR. LBM 04/27, receiving routine bowel care with additional PRN bowel care available. D/w dietary to send honey thickened prune juice with next meal to further assist with bowel regularity. Will continue to follow closely and monitor need for further nutrition intervention. Recommendations: 1) Continue pureed food with honey thick liquids per ST recs; consider liberalization to regular diet with texture modifications per ST recs in view of poor PO intake 2) Honey thickened Ensure Enlive TID, pending physician approval in EMR 3) Routine bowel care 4) Scaled weight this admit; weekly scaled weights thereafter Addendum: 05/01/21 at [address] Amended: Links added.
[2021-05-01] MEDS: sodium chloride 0.45% 1,000 ML IV SCH ×3 (12:52→22:33)
[2021-05-01] MEDS: lactose-reduced food (Ensure Enlive) - 237ml bottle PO SCH (13:00)
[2021-05-01] MEDS ORDERED: cloNIDine 0.1 mg tablet PO PRN (13:05)
[2021-05-01 14:00] VITALS: BP 181/102
[2021-05-01] MEDS: cloNIDine 0.2 MG/24 HR patch (7 day patch) TD SCH (15:43)
[2021-05-01 18:00] VITALS: BP 168/100
--- NOTE | 2021-05-01 18:20 | NUR ---
Problems reprioritized. Patient report given, questions answered & plan of care reviewed with NICO Iverson.
[2021-05-01] MEDS: lactobacillus rhamnosus 10,000 MMU CELLS/CAPSULE PO SCH (20:37)
[2021-05-01] MEDS: atorvastatin 20mg tablet PO SCH (20:37)
[2021-05-01 22:00] VITALS: BP 158/95
[2021-05-02 02:00] VITALS: BP 143/84
[2021-05-02 06:00] VITALS: BP 134/75
[2021-05-02] MEDS: lactose-reduced food (Ensure Enlive) - 237ml bottle PO SCH ×3 (08:00→18:00)
[2021-05-02] MEDS: K and/or MAG REPLACEMENT MC SCH ×2 (08:00→20:00)
[2021-05-02] MEDS: docusate sod 100mg capsule PO SCH ×2 (08:00→20:00)
[2021-05-02] MEDS: nystatin 15 GM powder TP SCH (09:00)
[2021-05-02] MEDS: REMDESIVIR INJ 100 MG in normal saline 100ml IV soln 80 ML IV SCH (10:00)
[2021-05-02] MEDS: amLODIPine 5mg tablet PO SCH (10:10)
[2021-05-02] MEDS: ezetimibe 10mg tablet PO SCH (10:10)
[2021-05-02] MEDS: dexamethasone 4mg/ml inj IV SCH ×2 (10:10→23:12)
[2021-05-02] MEDS: losartan 50mg tablet PO SCH (10:10)
[2021-05-02] MEDS: loratadine 10mg tablet PO SCH (10:10)
[2021-05-02] MEDS: apixaban 5mg tablet PO SCH ×2 (10:10→23:15)
[2021-05-02] MEDS: lactobacillus rhamnosus 10,000 MMU CELLS/CAPSULE PO SCH ×2 (10:10→23:15)
[2021-05-02] MEDS: sotalol 80mg tablet PO SCH (10:10)
[2021-05-02 11:00] VITALS: BP 171/105
[2021-05-02] MEDS: piperacillin/tazo 3.375gm/50ml 50 ML IV SCH ×2 (11:00→23:15)
--- NOTE | 2021-05-02 15:43 | NUR ---
PAGER ID: [phone] MESSAGE: [phone] a/o, on room air, wants rankin out & wants to go home [phone]
[2021-05-02] MEDS: sodium chloride 0.45% 1,000 ML IV SCH ×2 (17:16→20:30)
[2021-05-02 18:00] VITALS: BP 172/98
[2021-05-02 22:00] VITALS: BP 150/96
[2021-05-02] MEDS: atorvastatin 20mg tablet PO SCH (23:15)
[2021-05-03 02:00] VITALS: BP 134/89
[2021-05-03 06:00] VITALS: BP 130/63
--- NOTE | 2021-05-03 06:28 | NUR ---
Problems reprioritized. Patient report given, questions answered & plan of care reviewed with NICO Esposito.
[2021-05-03] MEDS: sodium chloride 0.45% 1,000 ML IV SCH (06:30)
[2021-05-03] MEDS: lactose-reduced food (Ensure Enlive) - 237ml bottle PO SCH ×3 (08:00→18:00)
[2021-05-03] MEDS: docusate sod 100mg capsule PO SCH ×2 (08:00→20:00)
[2021-05-03] MEDS: dexamethasone 4mg/ml inj IV SCH ×2 (08:00→23:03)
[2021-05-03] MEDS: K and/or MAG REPLACEMENT MC SCH ×2 (08:00→20:00)
[2021-05-03] MEDS: sotalol 80mg tablet PO SCH (08:00)
[2021-05-03] MEDS: nystatin 15 GM powder TP SCH (08:00)
[2021-05-03] MEDS: piperacillin/tazo 3.375gm/50ml 50 ML IV SCH ×2 (09:00→18:00)
[2021-05-03] MEDS: loratadine 10mg tablet PO SCH (10:36)
[2021-05-03] MEDS: lactobacillus rhamnosus 10,000 MMU CELLS/CAPSULE PO SCH ×2 (10:36→23:03)
[2021-05-03] MEDS: losartan 50mg tablet PO SCH (10:36)
[2021-05-03] MEDS: ezetimibe 10mg tablet PO SCH (10:37)
[2021-05-03] MEDS: apixaban 5mg tablet PO SCH ×2 (10:37→23:04)
[2021-05-03] MEDS: amLODIPine 5mg tablet PO SCH (10:37)
[2021-05-03 11:00] VITALS: BP 160/100
[2021-05-03] MEDS: REMDESIVIR INJ 100 MG in normal saline 100ml IV soln 80 ML IV SCH (15:37)
--- NOTE | 2021-05-03 19:30 | NUR ---
Pt developed bloody nose. Advised pt to apply pressure with tissue. Bleeding stopped minimal blood loss.
[2021-05-03] MEDS: atorvastatin 20mg tablet PO SCH (23:03)
[2021-05-03] MEDS: HYDROcodone/acetaminophen 10/325mg tab PO PRN (23:04)
[2021-05-04] MEDS: piperacillin/tazo 3.375gm/50ml 50 ML IV SCH ×3 (01:06→18:00)
[2021-05-04] MEDS: sodium chloride 0.45% 1,000 ML IV SCH ×3 (02:30→22:30)
[2021-05-04 06:00] VITALS: BP 140/90
--- NOTE | 2021-05-04 07:03 | NUR ---
Problems reprioritized. Patient report given, questions answered & plan of care reviewed with NICO Esposito.
[2021-05-04] MEDS: docusate sod 100mg capsule PO SCH ×2 (08:00→20:00)
[2021-05-04] MEDS: K and/or MAG REPLACEMENT MC SCH ×2 (08:00→20:00)
[2021-05-04] MEDS: lactose-reduced food (Ensure Enlive) - 237ml bottle PO SCH ×3 (08:00→18:00)
[2021-05-04] MEDS: loratadine 10mg tablet PO SCH (08:24)
[2021-05-04] MEDS: dexamethasone 4mg/ml inj IV SCH ×2 (08:24→20:18)
[2021-05-04] MEDS: REMDESIVIR INJ 100 MG in normal saline 100ml IV soln 80 ML IV SCH (08:26)
[2021-05-04] MEDS: amLODIPine 5mg tablet PO SCH (08:29)
[2021-05-04] MEDS: losartan 50mg tablet PO SCH (08:29)
[2021-05-04] MEDS: lactobacillus rhamnosus 10,000 MMU CELLS/CAPSULE PO SCH ×2 (08:29→20:23)
[2021-05-04] MEDS: sotalol 80mg tablet PO SCH (08:29)
[2021-05-04] MEDS: apixaban 5mg tablet PO SCH ×2 (08:29→20:23)
[2021-05-04] MEDS: ezetimibe 10mg tablet PO SCH (08:29)
[2021-05-04] MEDS: nystatin 15 GM powder TP SCH (08:36)
[2021-05-04 09:01] LABS: BASOPHILS % (AUTO) 0.1 % (0-1); EOSINOPHILS % (AUTO) 0.1 % (0-6); HEMATOCRIT 36.5 % (42.0-52.0); HEMOGLOBIN 12.5 g/dl (14.0-17.9); LYMPHOCYTES # (AUTO) 0.7 X10'3 (1.1-4.8); LYMPHOCYTES % (AUTO) 8.2 % (21-51); MEAN CORPUSCULAR HEMOGLOBIN 30.5 PG (27.0-31.0); MEAN CORPUSCULAR HGB CONC 34.4 g/dL (33.0-36.5); MEAN CORPUSCULAR VOLUME 88.7 FL (78-98); MEAN PLATELET VOLUME 10.4 FL (7.4-10.4); MONOCYTES # (AUTO) 0.6 X10'3 (0-0.9); MONOCYTES % (AUTO) 7.2 % (2-12); NEUTROPHILS # (AUTO) 6.9 X10'3 (1.8-7.7); NEUTROPHILS % (AUTO) 84.4 % (42-75); PLATELET COUNT 268 X10'3 (140-440); RED BLOOD COUNT 4.11 X10'6 (4.70-6.10); RED CELL DISTRIBUTION WIDTH 14.7 % (11.5-14.5); WHITE BLOOD COUNT 8.1 X10'3 (4.5-11.0)
[2021-05-04 09:48] LABS: ALANINE AMINOTRANSFERASE 37 U/L (12-78); ALBUMIN 2.1 G/DL (3.4-5.0); ALBUMIN/GLOBULIN RATIO 0.5 (1.1-1.5); ALKALINE PHOSPHATASE 64 IU/L (46-116); ANION GAP 12 (8-16); ASPARTATE AMINO TRANSFERASE 26 U/L (10-37); BILIRUBIN,TOTAL 0.7 MG/DL (0.1-1.0); BLOOD UREA NITROGEN 50 MG/DL (7-18); BUN/CREATININE RATIO 38.5 (5.4-32.0); CALCIUM 7.8 MG/DL (8.5-10.1); CHLORIDE 110 MMOL/L (99-107); GLUCOSE 155 MG/DL (70-104); POTASSIUM 3.8 MMOL/L (3.5-5.1); SODIUM 141 MMOL/L (135-145); TOTAL CARBON DIOXIDE 18.8 MMOL/L (24-32); TOTAL PROTEIN 6.5 G/DL (6.4-8.2); eGFR 56 ML/MIN
[2021-05-04 10:30] VITALS: BP 140/90
[2021-05-04 14:00] VITALS: BP 179/92
--- NOTE | 2021-05-04 15:15 | NUR ---
Reassessment: Pt advanced to MM5/nectar thick/renal/heart healthy diet per METER INSTALLER AND REMOVER/MD recs. PO continues to fluctuate ~25-50% avg meals w/ refusals past 5 days not meeting needs. Noted pt reports not wanting thickened liquids likely impacting PO trends since on room air per EMR. Ensure Enlive TIDWM starting today WL since verified by MD. LBM 05/02. Given pt MARILU r/t dehydration improving w/ nephrology signed off per MD note and current PO hx would benefit from removal of renal and heart healthy restrictions if MD agreeable. Will monitor for further PO trends and ONS acceptance this admit. Recommendations: 1) Continue pureed, nectar thick liquids per ST recs; consider liberalization to regular diet with texture modifications per ST recs in view of poor PO intake hx and MARILU improving per MD note; encourage PO 2) [place] thickened Ensure Enlive TIDWM; encourage PO 3) Routine bowel care 4) Scaled weight this admit; weekly scaled weights thereafter Addendum: 05/04/21 at [address] Amended: Links added.
[2021-05-04 18:00] VITALS: BP 155/68
--- NOTE | 2021-05-04 18:55 | NUR ---
Patient in room ORTHO 4009. I have received report from NICO Esposito and had the opportunity to ask questions and assume patient care.
[2021-05-04] MEDS: atorvastatin 20mg tablet PO SCH (20:23)
[2021-05-04 22:00] VITALS: BP 136/85
[2021-05-05 02:00] VITALS: BP 107/67
[2021-05-05] MEDS: sodium chloride 0.45% 1,000 ML IV SCH ×3 (04:28→18:30)
[2021-05-05 06:00] VITALS: BP 144/83
--- NOTE | 2021-05-05 07:07 | NUR ---
Patient in room ORTHO 4009A. I have received report from NICO MALLORY and had the opportunity to ask questions and assume patient care.
--- NOTE | 2021-05-05 07:14 | NUR ---
Problems reprioritized. Patient report given, questions answered & plan of care reviewed with NICO Bustamante.
[2021-05-05] MEDS: K and/or MAG REPLACEMENT MC SCH ×2 (08:00→20:00)
[2021-05-05] MEDS: docusate sod 100mg capsule PO SCH ×2 (08:00→20:00)
[2021-05-05] MEDS: piperacillin/tazo 3.375gm/50ml 50 ML IV SCH ×3 (08:25→16:42)
[2021-05-05] MEDS: dexamethasone 4mg/ml inj IV SCH ×2 (08:27→20:06)
[2021-05-05] MEDS: sotalol 80mg tablet PO SCH (08:29)
[2021-05-05] MEDS: amLODIPine 5mg tablet PO SCH (08:30)
[2021-05-05] MEDS: apixaban 5mg tablet PO SCH ×2 (08:31→20:07)
[2021-05-05] MEDS: losartan 50mg tablet PO SCH (08:32)
[2021-05-05] MEDS: lactobacillus rhamnosus 10,000 MMU CELLS/CAPSULE PO SCH ×2 (08:32→20:07)
[2021-05-05] MEDS: loratadine 10mg tablet PO SCH (08:33)
[2021-05-05] MEDS: ezetimibe 10mg tablet PO SCH (08:34)
[2021-05-05] MEDS: lactose-reduced food (Ensure Enlive) - 237ml bottle PO SCH ×3 (08:34→18:47)
[2021-05-05] MEDS: nystatin 15 GM powder TP SCH (08:34)
[2021-05-05 10:00] VITALS: BP 140/63
[2021-05-05 14:00] VITALS: BP 159/93
[2021-05-05 18:00] VITALS: BP 158/94
--- NOTE | 2021-05-05 18:43 | NUR ---
Problems reprioritized. Patient report given, questions answered & plan of care reviewed with NICO TIM.
[2021-05-05] MEDS: atorvastatin 20mg tablet PO SCH (20:07)
[2021-05-05] MEDS: diphenhydrAMINE 25mg capsule PO PRN (21:30)
[2021-05-05 22:00] VITALS: BP 158/95
[2021-05-06 02:00] VITALS: BP 142/88
[2021-05-06] MEDS: sodium chloride 0.45% 1,000 ML IV SCH (04:30)
[2021-05-06 06:00] VITALS: BP 159/86
--- NOTE | 2021-05-06 06:23 | NUR ---
Problems reprioritized. Patient report given, questions answered & plan of care reviewed with Dianna WALSH.
--- NOTE | 2021-05-06 06:29 | NUR ---
Patient in room ORTHO 4009A. I have received report from NICO TIM and had the opportunity to ask questions and assume patient care.
[2021-05-06] MEDS: docusate sod 100mg capsule PO SCH ×2 (07:07→22:06)
[2021-05-06] MEDS: K and/or MAG REPLACEMENT MC SCH ×2 (08:00→20:00)
[2021-05-06] MEDS: sotalol 80mg tablet PO SCH (08:00)
[2021-05-06] MEDS: ezetimibe 10mg tablet PO SCH (08:24)
[2021-05-06] MEDS: lactobacillus rhamnosus 10,000 MMU CELLS/CAPSULE PO SCH ×2 (08:24→22:06)
[2021-05-06] MEDS: loratadine 10mg tablet PO SCH (08:24)
[2021-05-06] MEDS: apixaban 5mg tablet PO SCH ×2 (08:25→22:05)
[2021-05-06] MEDS: lactose-reduced food (Ensure Enlive) - 237ml bottle PO SCH ×2 (08:25→13:23)
[2021-05-06] MEDS: losartan 50mg tablet PO SCH (08:26)
[2021-05-06] MEDS: dexamethasone 4mg/ml inj IV SCH ×2 (08:33→22:07)
[2021-05-06] MEDS: NYSTATIN CREAM - 30GM TUBE TP SCH (08:42)
[2021-05-06] MEDS: mag hydrox/Alum hydrox/simeth 30ml oral suspension PO PRN (08:43)
[2021-05-06 11:00] VITALS: BP 178/90
[2021-05-06] MEDS: amLODIPine 5mg tablet PO SCH (11:13)
--- NOTE | 2021-05-06 14:50 | NUR ---
F/u: Pt advanced to MM5/thin/renal/heart healthy per SUPERVISOR STONE/MD this AM PO much improved ~75% past 7 meals meeting estimated needs. Pt refusing ensures per EMR. NICHELLE d/w RN regarding cancelling ensure ONS and liberalizing to regular diet if MD agreeable since kidney function improving w/ nephrology signed off and currently receiving NS at 100ml/hr. RN reports pt would like double eggs and oatmeal WB instead of cream of wheat currently receiving; RD notified RN this would be possible once renal diet restriction removed from EMR. LBM 05/05. Will continue to monitor for additional nutrition intervention needs this admit. Recommendations: 1) liberalize to MM5/thin/regular diet per SUPERVISOR STONE/MD recs 2) double eggs and oatmeal WB once prior renal restriction removal per pt preferences 3) Routine bowel care 4) Scaled weight this admit; weekly scaled weights thereafter Addendum: 05/06/21 at [address] Amended: Links added.
--- NOTE | 2021-05-06 16:14 | NUR ---
Page Sent PAGER ID: [phone] MESSAGE: CONSUELO 5199-RE: MARKIE VIRGEN [phone]...CAN I CHANGE DIET ORDER FROM RENAL TO REGULAR...AGUILA FROM DIETARY IS REQUESTING CHANGE?
[2021-05-06 18:00] VITALS: BP 148/92
--- NOTE | 2021-05-06 18:57 | NUR ---
Problems reprioritized. Patient report given, questions answered & plan of care reviewed with NICO BLACKWOOD.
[2021-05-06 22:00] VITALS: BP 147/73
[2021-05-06] MEDS: atorvastatin 20mg tablet PO SCH (22:06)
[2021-05-07 02:00] VITALS: BP 118/37
[2021-05-07 06:00] VITALS: BP 151/98
--- NOTE | 2021-05-07 06:25 | NUR ---
Problems reprioritized. Patient report given, questions answered & plan of care reviewed with NICO Merchant.
[2021-05-07] MEDS: dexamethasone 4mg/ml inj IV SCH ×2 (07:32→20:40)
[2021-05-07] MEDS: losartan 50mg tablet PO SCH (07:33)
[2021-05-07] MEDS: ezetimibe 10mg tablet PO SCH (07:33)
[2021-05-07] MEDS: lactobacillus rhamnosus 10,000 MMU CELLS/CAPSULE PO SCH ×2 (07:33→20:40)
[2021-05-07] MEDS: docusate sod 100mg capsule PO SCH ×2 (07:33→20:00)
[2021-05-07] MEDS: sotalol 80mg tablet PO SCH (07:33)
[2021-05-07] MEDS: loratadine 10mg tablet PO SCH (07:33)
[2021-05-07] MEDS: apixaban 5mg tablet PO SCH ×2 (07:33→20:40)
[2021-05-07] MEDS: amLODIPine 5mg tablet PO SCH (07:34)
[2021-05-07] MEDS: NYSTATIN CREAM - 30GM TUBE TP SCH (08:00)
[2021-05-07] MEDS: K and/or MAG REPLACEMENT MC SCH ×2 (08:00→20:00)
[2021-05-07 10:30] VITALS: BP 170/94
[2021-05-07 12:22] LABS: BASOPHILS % (AUTO) 0 % (0-1); EOSINOPHILS % (AUTO) 0 % (0-6); HEMATOCRIT 41.1 % (42.0-52.0); HEMOGLOBIN 14.3 g/dl (14.0-17.9); LYMPHOCYTES # (AUTO) 0.5 X10'3 (1.1-4.8); LYMPHOCYTES % (AUTO) 4.6 % (21-51); MEAN CORPUSCULAR HEMOGLOBIN 30.4 PG (27.0-31.0); MEAN CORPUSCULAR HGB CONC 34.7 g/dL (33.0-36.5); MEAN CORPUSCULAR VOLUME 87.7 FL (78-98); MEAN PLATELET VOLUME 10.1 FL (7.4-10.4); MONOCYTES # (AUTO) 0.8 X10'3 (0-0.9); MONOCYTES % (AUTO) 8.1 % (2-12); NEUTROPHILS # (AUTO) 8.7 X10'3 (1.8-7.7); NEUTROPHILS % (AUTO) 87.3 % (42-75); PLATELET COUNT 263 X10'3 (140-440); RED BLOOD COUNT 4.69 X10'6 (4.70-6.10); RED CELL DISTRIBUTION WIDTH 14.6 % (11.5-14.5)
[2021-05-07 12:35] LABS: ALANINE AMINOTRANSFERASE 53 U/L (12-78); ALBUMIN 2.2 G/DL (3.4-5.0); ALBUMIN/GLOBULIN RATIO 0.5 (1.1-1.5); ALKALINE PHOSPHATASE 71 IU/L (46-116); ANION GAP 13 (8-16); ASPARTATE AMINO TRANSFERASE 28 U/L (10-37); BILIRUBIN,TOTAL 0.6 MG/DL (0.1-1.0); BLOOD UREA NITROGEN 35 MG/DL (7-18); CHLORIDE 106 MMOL/L (99-107); CREATININE 1.13 MG/DL (0.60-1.10); GLUCOSE 182 MG/DL (70-104); SODIUM 139 MMOL/L (135-145); TOTAL CARBON DIOXIDE 20.4 MMOL/L (24-32); TOTAL PROTEIN 6.5 G/DL (6.4-8.2); eGFR 66 ML/MIN
[2021-05-07 12:38] LABS: POTASSIUM 3.9 MMOL/L (3.5-5.1)
[2021-05-07 14:00] VITALS: BP 148/88
[2021-05-07 18:00] VITALS: BP 160/92
[2021-05-07] MEDS: atorvastatin 20mg tablet PO SCH (20:40)
[2021-05-07 22:00] VITALS: BP 155/84
[2021-05-08] MEDS: acetaminophen 325mg tablet PO PRN (03:55)
[2021-05-08 06:00] VITALS: BP 155/89
--- NOTE | 2021-05-08 06:31 | NUR ---
Problems reprioritized. Patient report given, questions answered & plan of care reviewed with NICO Osullivan.
[2021-05-08] MEDS: docusate sod 100mg capsule PO SCH ×2 (07:56→19:14)
[2021-05-08] MEDS: dexamethasone 4mg/ml inj IV SCH ×2 (07:59→19:13)
[2021-05-08] MEDS: ezetimibe 10mg tablet PO SCH (07:59)
[2021-05-08] MEDS: lactobacillus rhamnosus 10,000 MMU CELLS/CAPSULE PO SCH ×2 (07:59→19:13)
[2021-05-08] MEDS: loratadine 10mg tablet PO SCH (07:59)
[2021-05-08] MEDS: apixaban 5mg tablet PO SCH ×2 (07:59→19:13)
[2021-05-08] MEDS: sotalol 80mg tablet PO SCH (08:00)
[2021-05-08] MEDS: amLODIPine 5mg tablet PO SCH (08:01)
[2021-05-08] MEDS: losartan 50mg tablet PO SCH (08:02)
[2021-05-08] MEDS: NYSTATIN CREAM - 30GM TUBE TP SCH (08:11)
[2021-05-08] MEDS: K and/or MAG REPLACEMENT MC SCH ×2 (09:00→19:11)
[2021-05-08 10:00] VITALS: BP 135/94
[2021-05-08 14:00] VITALS: BP 130/84
[2021-05-08] MEDS: cloNIDine 0.2 MG/24 HR patch (7 day patch) TD SCH (14:07)
[2021-05-08 18:00] VITALS: BP 163/98
--- NOTE | 2021-05-08 18:13 | NUR ---
Patient in room ORTHO 4009. I have received report from NICO Osullivan and had the opportunity to ask questions and assume patient care.
[2021-05-08] MEDS: atorvastatin 20mg tablet PO SCH (19:14)
[2021-05-08] MEDS: diphenhydrAMINE 25mg capsule PO PRN (21:17)
[2021-05-08 22:00] VITALS: BP 122/78
[2021-05-08 22:04] VITALS: BP 122/78
[2021-05-09 06:00] VITALS: BP 151/90
--- NOTE | 2021-05-09 06:37 | NUR ---
Problems reprioritized. Patient report given, questions answered & plan of care reviewed with NICO Soto.
[2021-05-09] MEDS: K and/or MAG REPLACEMENT MC SCH ×2 (08:00→19:49)
[2021-05-09] MEDS: dexamethasone 4mg/ml inj IV SCH ×2 (09:54→19:49)
[2021-05-09] MEDS: apixaban 5mg tablet PO SCH ×2 (09:54→19:48)
[2021-05-09] MEDS: sotalol 80mg tablet PO SCH (09:55)
[2021-05-09] MEDS: docusate sod 100mg capsule PO SCH ×2 (09:55→19:48)
[2021-05-09] MEDS: loratadine 10mg tablet PO SCH (09:55)
[2021-05-09] MEDS: NYSTATIN CREAM - 30GM TUBE TP SCH (09:55)
[2021-05-09] MEDS: ezetimibe 10mg tablet PO SCH (09:55)
[2021-05-09] MEDS: losartan 50mg tablet PO SCH (09:59)
[2021-05-09] MEDS: amLODIPine 5mg tablet PO SCH (09:59)
[2021-05-09] MEDS: lactobacillus rhamnosus 10,000 MMU CELLS/CAPSULE PO SCH ×2 (09:59→19:48)
[2021-05-09 10:00] VITALS: BP 188/105
[2021-05-09 14:00] VITALS: BP 149/90
[2021-05-09 18:00] VITALS: BP 148/88
[2021-05-09] MEDS: atorvastatin 20mg tablet PO SCH (19:48)
[2021-05-09] MEDS: acetaminophen 325mg tablet PO PRN (19:49)
[2021-05-09 22:00] VITALS: BP 159/88
[2021-05-10] VITALS (7 sets, daily range): BP systolic 122–169; BP diastolic 75–104
[2021-05-10] MEDS: mag hydrox/Alum hydrox/simeth 30ml oral suspension PO PRN (01:45)
[2021-05-10] MEDS: K and/or MAG REPLACEMENT MC SCH ×2 (08:00→20:00)
[2021-05-10] MEDS: docusate sod 100mg capsule PO SCH ×2 (08:00→20:00)
--- NOTE | 2021-05-10 08:12 | NUR ---
PAGER ID: [phone] MESSAGE: [phone] May wants to know why he's still on decadron- 10 days [id number] HENRIK
[2021-05-10] MEDS: loratadine 10mg tablet PO SCH (08:31)
[2021-05-10] MEDS: sotalol 80mg tablet PO SCH (08:31)
[2021-05-10] MEDS: apixaban 5mg tablet PO SCH ×2 (08:31→20:01)
[2021-05-10] MEDS: ezetimibe 10mg tablet PO SCH (08:31)
[2021-05-10] MEDS: lactobacillus rhamnosus 10,000 MMU CELLS/CAPSULE PO SCH ×2 (08:31→20:01)
[2021-05-10] MEDS: losartan 50mg tablet PO SCH (08:36)
[2021-05-10] MEDS: amLODIPine 5mg tablet PO SCH (08:36)
[2021-05-10] MEDS: NYSTATIN CREAM - 30GM TUBE TP SCH (08:39)
[2021-05-10] MEDS: dexamethasone 4mg/ml inj IV SCH (09:33)
[2021-05-10] MEDS: cloNIDine 0.1 mg tablet PO SCH ×2 (13:00→20:01)
[2021-05-10] MEDS: diphenhydrAMINE 25mg capsule PO PRN (20:00)
[2021-05-10] MEDS: atorvastatin 20mg tablet PO SCH (20:01)
[2021-05-11 02:00] VITALS: BP 126/76
[2021-05-11 06:00] VITALS: BP 164/95
[2021-05-11] MEDS: docusate sod 100mg capsule PO SCH ×2 (08:00→20:00)
[2021-05-11] MEDS: K and/or MAG REPLACEMENT MC SCH ×2 (08:00→20:00)
[2021-05-11] MEDS: NYSTATIN CREAM - 30GM TUBE TP SCH (08:00)
[2021-05-11 10:00] VITALS: BP 142/94
[2021-05-11] MEDS: ezetimibe 10mg tablet PO SCH (12:53)
[2021-05-11] MEDS: cloNIDine 0.1 mg tablet PO SCH ×3 (12:53→20:27)
[2021-05-11] MEDS: loratadine 10mg tablet PO SCH (12:54)
[2021-05-11] MEDS: amLODIPine 5mg tablet PO SCH (12:54)
[2021-05-11] MEDS: lactobacillus rhamnosus 10,000 MMU CELLS/CAPSULE PO SCH ×2 (12:54→20:27)
[2021-05-11] MEDS: apixaban 5mg tablet PO SCH ×2 (12:54→20:27)
[2021-05-11] MEDS: sotalol 80mg tablet PO SCH (12:54)
[2021-05-11] MEDS: losartan 50mg tablet PO SCH (12:55)
--- NOTE | 2021-05-11 13:58 | NUR ---
F/u 05/11: Pt continues MM5/heart healthy/thin diet diet PO ~75% avg meals w/ 100% dinner last night per EMR. Noted pt new full thickness wound to scrotum per WOC RN; currently meeting estimated healing needs. LBM 05/10. Will continue to monitor. Recommendations: 1) liberalize to MM5/thin/regular diet per BULL GANG SUPERVISOR/ recs 2) double eggs and oatmeal WB per pt preferences 3) Routine bowel care 4) Scaled weight this admit; weekly scaled weights thereafter Addendum: 05/11/21 at [address] Amended: Links added.
[2021-05-11 14:00] VITALS: BP 129/82
[2021-05-11 18:00] VITALS: BP 142/94
[2021-05-11] MEDS: diphenhydrAMINE 25mg capsule PO PRN (20:27)
[2021-05-11] MEDS: atorvastatin 20mg tablet PO SCH (20:27)
[2021-05-11] MEDS: mag hydrox/Alum hydrox/simeth 30ml oral suspension PO PRN (20:27)
[2021-05-12 06:27] VITALS: BP 105/60
--- NOTE | 2021-05-12 06:27 | NUR ---
Patient in room ORTHO 4009. I have received report from Verónica WALSH and had the opportunity to ask questions and assume patient care.
[2021-05-12] MEDS: lactobacillus rhamnosus 10,000 MMU CELLS/CAPSULE PO SCH ×2 (06:58→19:59)
[2021-05-12] MEDS: amLODIPine 5mg tablet PO SCH (06:59)
[2021-05-12] MEDS: cloNIDine 0.1 mg tablet PO SCH ×3 (06:59→20:02)
[2021-05-12] MEDS: sotalol 80mg tablet PO SCH (06:59)
[2021-05-12] MEDS: docusate sod 100mg capsule PO SCH ×2 (06:59→19:59)
[2021-05-12] MEDS: apixaban 5mg tablet PO SCH ×2 (06:59→19:59)
[2021-05-12] MEDS: loratadine 10mg tablet PO SCH (06:59)
[2021-05-12] MEDS: ezetimibe 10mg tablet PO SCH (06:59)
[2021-05-12] MEDS: K and/or MAG REPLACEMENT MC SCH ×2 (08:00→19:58)
[2021-05-12] MEDS: losartan 50mg tablet PO SCH (08:00)
[2021-05-12] MEDS: NYSTATIN CREAM - 30GM TUBE TP SCH (08:00)
[2021-05-12 10:00] VITALS: BP 134/83
[2021-05-12 18:00] VITALS: BP 142/82
--- NOTE | 2021-05-12 18:13 | NUR ---
Problems reprioritized. Patient report given, questions answered & plan of care reviewed with Christal WALSH.
--- NOTE | 2021-05-12 18:48 | NUR ---
Patient in room ORTHO 4009. I have received report from Carolyn WALSH and had the opportunity to ask questions and assume patient care.
[2021-05-12] MEDS: atorvastatin 20mg tablet PO SCH (20:02)
[2021-05-12 20:10] VITALS: BP 113/66
[2021-05-12 22:00] VITALS: BP 147/97
--- NOTE | 2021-05-13 06:19 | NUR ---
Problems reprioritized. Patient report given, questions answered & plan of care reviewed with Carolyn WALSH.
--- NOTE | 2021-05-13 06:21 | NUR ---
Patient in room ORTHO 4009. I have received report from Christal WALSH and had the opportunity to ask questions and assume patient care.
[2021-05-13 06:41] VITALS: BP 156/72
[2021-05-13] MEDS: ezetimibe 10mg tablet PO SCH (07:49)
[2021-05-13] MEDS: lactobacillus rhamnosus 10,000 MMU CELLS/CAPSULE PO SCH ×2 (07:49→20:12)
[2021-05-13] MEDS: loratadine 10mg tablet PO SCH (07:49)
[2021-05-13] MEDS: amLODIPine 5mg tablet PO SCH (07:50)
[2021-05-13] MEDS: docusate sod 100mg capsule PO SCH ×2 (07:50→20:00)
[2021-05-13] MEDS: cloNIDine 0.1 mg tablet PO SCH ×3 (07:50→20:13)
[2021-05-13] MEDS: apixaban 5mg tablet PO SCH ×2 (07:50→20:12)
[2021-05-13] MEDS: sotalol 80mg tablet PO SCH (07:51)
[2021-05-13] MEDS: losartan 50mg tablet PO SCH (08:00)
[2021-05-13] MEDS: K and/or MAG REPLACEMENT MC SCH ×2 (08:00→20:00)
[2021-05-13] MEDS: NYSTATIN CREAM - 30GM TUBE TP SCH (08:53)
[2021-05-13 10:12] VITALS: BP 128/75
[2021-05-13 14:00] VITALS: BP 142/88
[2021-05-13 18:00] VITALS: BP 127/82
--- NOTE | 2021-05-13 18:19 | NUR ---
Patient in room ORTHO 4009. I have received report from Carolyn WALSH and had the opportunity to ask questions and assume patient care.
--- NOTE | 2021-05-13 18:22 | NUR ---
Problems reprioritized. Patient report given, questions answered & plan of care reviewed with Christal WALSH.
[2021-05-13] MEDS: atorvastatin 20mg tablet PO SCH (20:13)
[2021-05-13 20:18] VITALS: BP 141/88
--- NOTE | 2021-05-13 22:00 | NUR ---
Patient refusing vitals
--- NOTE | 2021-05-14 06:14 | NUR ---
Problems reprioritized. Patient report given, questions answered & plan of care reviewed with Carolyn WALSH.
--- NOTE | 2021-05-14 06:19 | NUR ---
Patient in room ORTHO 4009. I have received report from Christal WALSH and had the opportunity to ask questions and assume patient care.
[2021-05-14 06:25] VITALS: BP 129/83
[2021-05-14] MEDS: lactobacillus rhamnosus 10,000 MMU CELLS/CAPSULE PO SCH (07:42)
[2021-05-14] MEDS: sotalol 80mg tablet PO SCH (07:42)
[2021-05-14] MEDS: loratadine 10mg tablet PO SCH (07:42)
[2021-05-14] MEDS: ezetimibe 10mg tablet PO SCH (07:42)
[2021-05-14] MEDS: apixaban 5mg tablet PO SCH (07:42)
[2021-05-14] MEDS: amLODIPine 5mg tablet PO SCH ×2 (07:43→10:17)
[2021-05-14] MEDS: NYSTATIN CREAM - 30GM TUBE TP SCH (08:00)
[2021-05-14] MEDS: cloNIDine 0.1 mg tablet PO SCH (08:00)
[2021-05-14] MEDS: K and/or MAG REPLACEMENT MC SCH (08:00)
[2021-05-14] MEDS: docusate sod 100mg capsule PO SCH (08:00)
[2021-05-14] MEDS: losartan 50mg tablet PO SCH (08:00)
[2021-05-14 10:04] VITALS: BP 131/74
[2021-05-14 10:17] VITALS: BP_SYST 132
--- NOTE | 2021-05-14 12:41 | NUR ---
PAGER ID: [phone] MESSAGE: , November, discharge order? patient needs to leave by 1400. Thanks, jose francisco [phone]
[2021-05-14] MEDS ORDERED: APIX5TAB3 PO (12:49)
[2021-05-14] MEDS ORDERED: CLON0.1T2 PO (12:49)
[2021-05-14] MEDS ORDERED: EZET10TA48 PO (12:49)
[2021-05-14] MEDS ORDERED: SOTA80TA PO (12:49)
[2021-05-14] MEDS ORDERED: ATOR80TA PO (12:49)
[2021-05-14] MEDS ORDERED: LOSA50TA3 PO (12:49)
[2021-05-14] MEDS ORDERED: AMLO10TA13 PO (12:49)
--- NOTE | 2021-05-14 13:04 | NUR ---
Prescriptions called in to brenda.
--- NOTE | 2021-05-14 15:07 | NUR ---
With help from social worker clinical patient was discharged via taxi cab to the [place] to catch a plane at 1530 to go to [place] to be with his daughter who is going to be taking care of him. Patient was sent with all belongings which were packed into a bag along with a sack lunch. Patient was discharged via wheelchair to a taxi cab. Instructions given to patient and printed out discharge sent with him as well. 20 gauge PIV removed from left AC. No complications.
== END 2021-05-14 13:30 | disposition home or self-care (01) | DRG 137 ==
LOC: ER 10:40 → ED HOLD 16:27 → ORTHO 4S 23:00 → UNDODISIN 05-13 15:19
PROVIDERS: ADMIT Family Medicine; ATTEND Family Medicine
PROC: XW033E5 Introduction of Remdesivir Anti-infective into Peripheral Vein, Percutaneous Approach, New Technology Group 5 (ICD-10-PCS; principal; 2021-04-30)
PROC: 5A0945A Assistance with Respiratory Ventilation, 24-96 Consecutive Hours, High Flow/Velocity Cannula (ICD-10-PCS; 2021-04-30)
PROC: 5A0935A Assistance with Respiratory Ventilation, Less than 24 Consecutive Hours, High Flow/Velocity Cannula (ICD-10-PCS; 2021-05-13)
DX: U07.1 COVID-19 (principal); J96.01 Acute respiratory failure with hypoxia; N17.0 Acute kidney failure with tubular necrosis; J12.82 Pneumonia due to coronavirus disease 2019; G93.49 Other encephalopathy; E86.0 Dehydration; I48.0 Paroxysmal atrial fibrillation; E87.0 Hyperosmolality and hypernatremia; E87.2 Acidosis; I69.351 Hemiplegia and hemiparesis following cerebral infarction affecting right dominant side; J44.0 Chronic obstructive pulmonary disease with (acute) lower respiratory infection; I50.9 Heart failure, unspecified; I13.0 Hypertensive heart and chronic kidney disease with heart failure and stage 1 through stage 4 chronic kidney disease, or unspecified chronic kidney disease; E78.5 Hyperlipidemia, unspecified; I25.10 Atherosclerotic heart disease of native coronary artery without angina pectoris; N18.9 Chronic kidney disease, unspecified; I25.2 Old myocardial infarction; Z79.01 Long term (current) use of anticoagulants; Z79.899 Other long term (current) drug therapy; Z87.891 Personal history of nicotine dependence; Z95.1 Presence of aortocoronary bypass graft; Z98.61 Coronary angioplasty status; Z99.81 Dependence on supplemental oxygen; Z59.00 Homelessness unspecified
CPT/HCPCS: 36415; 71045; 76770; 80053; 80061; 81001; 82570; 83036; 83605; 83615; 83735; 83880; 84100; 84145; 84156; 84300; 84484; 85025; 85379; 86140; 87040; 87081; 87207; 87635; 92508; 92616; 93005; 93306; 94667; 94668; 94760; 96360; 97110; 97116; 97162; 97530; 97535; 99285; C9803; G0378; J1100; J2270; J2543; J7030; J8540; Q0163